=== PATIENT | male | born 1975 | race Caucasian/White ===

== ENCOUNTER 2018-09-27 13:38 | Observation (INO) | payer MEDICAID, SELFPAY ==
[2018-09-27 13:59] VITALS: BMI 23.1; BMI 23.2
[2018-09-27 14:00] VITALS: BP 127/84; PULSE 70; RESP 18; TEMP 36.6
--- NOTE | 2018-09-27 14:38 | [facility]ION ---
Addendum entered by Kayla De La Rosa 09/28/18 08:10: Patients girlfriend to pick patient up post discharge. Original Note: Patient has appointment for AOD assessment and MAMIE Estrella 10/02/2018 at [facility] in [place],
--- NOTE | 2018-09-27 14:45 | EKG12_ITS ---
Test Reason : OPIATE WITHDRAWL Blood Pressure : / mmHG Vent. Rate : 070 BPM Atrial Rate : 070 BPM P-R Int : 170 ms QRS Dur : 086 ms QT Int : 378 ms P-R-T Axes : 036 027 031 degrees QTc Int : 408 ms Normal sinus rhythm Normal ECG Confirmed by ILENE MCGEE, JAYDA ([id number]), online editor JUNIOR HUGO ([id number]) on 10/11/2018 1:48:50 PM Referred By: Estefani Capone Confirmed By:JAYDA ODOM MD
--- NOTE | 2018-09-27 14:57 | PCM.HP.STD ---
Problem List (1) Opiate withdrawal Status: Acute (2) Hepatitis C antibody test positive Status: Acute History of Present Illness Date of Admission: 09/27/18 Chief Complaint: Presented to the [facility] office requesting inpatient admission for acute opioid withdrawal. The patient is a 42 year old M with a past medical history of opiate dependence and hepatitis C who presented to the [facility] office at [facility] on 09/27/2018 requesting inpatient admission for medical stabilization for acute opiate withdrawal. His longest period of sobriety has been 3 years. Recently he had 6 months of sobriety and became ill with a viral illness and was with a friend who told him heroin may make him feel better and so he snorted heroin with the intention of only doing it once. He continued snorting heroin and approximately 2 weeks ago started intravenous use. Is been using again for approximately 1 month. He uses 1/2 g daily. He states he does not share needles. He has never been treated for hepatitis C. His symptoms include anxiety, diaphoresis, myalgias and arthralgias. He is constipated. No diarrhea and no abdominal pain or restless leg yet. Past Medical History Allergies No Known Allergies Allergy (Verified 09/27/18 14:01) Home Medications: Ambulatory Orders Medication Instructions Recorded NK 09/27/18 Surgical History: noncontributory Psychiatric History: No pertinent psych hx Lives: Alone Smoking Status: Never smoker Tobacco Use: Non-smoker Alcohol: Occasional Drugs: Heroin, Marijuana - occasionally - *Family History Maternal History Items: No pertinent history Paternal History Items: No pertinent history Review of Systems Constitutional: Denies: Chills, Fever, Weight Change Eyes: Denies: Blurred vision HEENT: Denies: Head Aches, Sinus Congestion, Sinus Drainage, Sore Throat Cardiovascular: Denies: Chest Pain, Edema, Light Headedness, Palpitations Respiratory: Denies: Cough, Shortness of breath at rest, Sputum production Gastrointestinal: Reports: Constipation. Denies: Abdominal Pain, Nausea, Vomiting Genitourinary: Denies: Dysuria Musculoskeletal: Reports: Joint Tenderness, Muscle pain. Denies: Joint Pain Skin: Denies: Jaundice, Pruritis, Rash, Wounds Neurological: Denies: Focal weakness, Numbness, Tingling, Seizures Psychiatric: Denies: Anxiety, Depression, Homicidal Ideations, Suicidal Ideations Endocrine: Denies: Hx of Thyroiditis Hematologic/ Lymphatic: Denies: Easy Bruising, Easy Bleeding, Hx of blood clot VTE Information - Inpt Only VTE Present on Admission: No VTE Mechan Device Prophylaxis: None VTE Pharm Prophylaxis ordered?: No Reason prophylaxis not ordered:: Treatment Not Indicated - risk is very low at 1 and he is ambulatory Patient Problems: Active and Suspected Problems Opiate withdrawal (Acute) Hepatitis C antibody test positive (Acute) - Physical Exam General: Alert, Oriented x3, Cooperative, No apparent distress, Well developed, Well nourished, - - looks younger than stated age HEENT: Atraumatic, PERRLA, EOMI, Normocephalic Oral: Moist Mucosa, No Gingival or Mucosal Lesions/ Ulcerations Neck: Supple, No JVD, Negative Carotid Bruits, Trachea Midline Lungs: Clear to auscultation, Normal air movement Cardiovascular: Regular rate, Regular Rhythm, Normal S1, Normal S2, No murmurs, No Ectopic Activity, No Gallop Abdomen: Bowel Sounds Present, Soft, Non Tender, Non-Distended Extremities: No clubbing, No cyanosis, No edema, Capillary Refill Less than 3 Seconds, Peripheral Pulses Normal Skin: No rashes, No breakdown Musculoskeletal: No Tenderness to Palpation of Joints or Extremities Neurological: Cranial nerves II-XII grossly intact Psych/Mental Status: Normal Affect, Appropriate Vital Signs Temp Pulse Resp BP 97.8 F 70 18 127/84 H 09/27/18 14:00 09/27/18 14:00 09/27/18 14:00 09/27/18 14:00 Weight: 180 lb 5.41 oz Body Mass Index (BMI) 23.1 Assessment/Plan All Active Problems Opiate withdrawal (Acute) Hepatitis C antibody test positive (Acute) Impressions 1. Acute opiate withdrawal 2. Opiate dependence with heroin, intravenous and snorting, 0.5 g a day 3. History of hepatitis C Initiate [facility] protocol for acute opiate withdrawal-buprenorphine taper As an outpatient he plans on doing Vivitrol Check CBC, CMP, urine drug screen, HIV and hepatitis panel Code Visit Inpatient E&M: [id number] Init Hosp L2
[2018-09-27] MEDS: Buprenorphine HCl 2 MG TAB.SUBL SL ×2 (15:17→22:55)
[2018-09-27] MEDS: Ondansetron ODT 4 MG Tablet PO (15:58)
[2018-09-27] MEDS: Dicyclomine 10 MG Capsule 20 MG PO ×2 (15:59→21:52)
[2018-09-27] MEDS: Azithromycin 250 MG Tablet 1000 MG PO (16:00)
[2018-09-27 16:11] LABS: Absolute Lymphocyte Count 1.91 X10^3/ul (0.83-4.51); Absolute Neutrophil Count 5.7 X10^3/uL (2.0-7.7); Basophil# 0.02 X10^3/uL; Basophil% 0.2 % (0-1); Eosinophil# 0.09 X10^3/uL; Hematocrit 39.4 % (40-54); Hemoglobin 13.4 g/dl (13.0-16.5); Lymphocyte # 1.91 X10^3/ul (4.0); Lymphocyte % 21.6 % (19-41); Mean Corpuscular Hgb 29.6 pg (27.0-32.0); Mean Platelet Vol. 9.6 fl (6.2-12.0); Monocyte# 1.15 X10^3/uL; Neutrophil # 5.67 X10^3/uL (2.7-7.7); Platelet Count 208 K/mm3 (150-450); RBC Distribution Width CV 12.6 % (11.6-14.6); RBC Distribution Width SD 40.4 fl (35.1-43.9); Red Blood Count 4.53 M/mm3 (4.6-6.2); White Blood Count 8.9 K/mm3 (4.4-11.0)
[2018-09-27 16:15] LABS: International Normalized Ratio 1.2; Prothrombin Time (Protime)PT. 14.9 SECONDS (11.7-14.9)
[2018-09-27 16:19] LABS: POSITIVE COUNT NO; POSITIVE DIFFERENTIAL NO; POSITIVE MORPHOLOGY NO
[2018-09-27 16:32] LABS: AST(SGOT) 23 U/L (15-37); Alanine Aminotransfer ALT/SGPT 32 U/L (16-61); Albumin, Serum 3.6 g/dL (3.2-5.0); Alkaline Phosphatase 69 U/L (45-117); Anion Gap 8 (5-15); BUN 15 mg/dL (7-18); BUN/Creat Ratio 16.2 RATIO (10-20); Calcium,Total 8.4 mg/dL (8.5-10.1); Chloride 105 mmol/L (98-107); Creatinine, Serum 0.92 mg/dL (0.70-1.30); EST Glomerular Filtration Rate 95 mL/min (>60); Est Glom Filt Rate - Afr Amer 114 mL/min (>60); Estimated Creatinine Clearance 119.79 ml/min; Globulin 3.6 g/dL (2.2-4.2); Glucose 121 mg/dL (74-106); Potassium 3.7 mmol/L (3.5-5.1); Protein, Total 7.2 g/dL (6.4-8.2); Sodium Level 137 mmol/L (136-145)
[2018-09-27 17:38] LABS: HIV - WCH Non-Reactive (Nonreactive)
[2018-09-27 18:00] VITALS: BP 120/74; PULSE 74; RESP 18; TEMP 37.2
[2018-09-27 18:09] LABS: Amphetamine Urine VISTA NEGATIVE (<1000 ng/mL); Barbiturate Urine VISTA NEGATIVE (< 200 ng/mL); Benzodiazepine Urine VISTA NEGATIVE (< 200 ng/mL); Cocaine Urine VISTA NEGATIVE (< 300 ng/mL); Ecstacy Urine VISTA NEGATIVE (< 500 ng/mL); Methadone Urine VISTA NEGATIVE (< 300 ng/mL); PCP Urine VISTA NEGATIVE (< 25 ng/mL); THC Urine VISTA POSITIVE (< 50 ng/mL); Vista UDS pH Range 5
[2018-09-27] MEDS: cloNIDine HCl 0.1 MG Tablet PO (20:24)
[2018-09-27] MEDS: Pramipexole Di-HCl 0.25 MG Tablet PO (20:24)
[2018-09-27] MEDS: Ibuprofen 600 MG Tablet PO (20:24)
[2018-09-27] MEDS: Methocarbamol 750 MG Tablet PO (20:24)
[2018-09-27 20:45] VITALS: BP 123/70; PULSE 66; RESP 16; TEMP 36.8
[2018-09-27] MEDS: traZODone 50 MG Tablet PO (21:52)
[2018-09-28 02:00] VITALS: BP 98/54; PULSE 60; RESP 16; TEMP 35.9
[2018-09-28] MEDS: Methocarbamol 750 MG Tablet PO (06:29)
[2018-09-28] MEDS: Buprenorphine HCl 2 MG TAB.SUBL SL ×3 (06:29→22:28)
[2018-09-28] MEDS: Dicyclomine 10 MG Capsule 20 MG PO (06:29)
[2018-09-28 06:36] VITALS: BP 106/56; PULSE 61; RESP 16; TEMP 35.5
--- NOTE | 2018-09-28 07:12 | PN_ITS ---
Patient Problems: Active and Suspected Problems Opiate withdrawal (Acute) Hepatitis C antibody test positive (Acute) Subjective: 42-year-old male admitted on 09/27/2018 for medical stabilization for acute opiate withdrawal. Afebrile with stable vital signs. CBC was unremarkable. BMP was remarkable for an mildly increased glucose of 121. Drug screen was positive for opiates and cannabinoids. HIV is nonreactive and hepatitis panel is pending. Doing well and has no complaints today. Objective: PHYSICAL EXAM: GENERAL: alert, oriented X 3, Cooperative, NAD ORAL: moist mucosa, no mucosal lesions NECK: No JVD, supple, trachea midline LUNGS: CTA, symmetric chest expansion HEART: RRR, Normal S1 and S2, no rub, no gallop ABDOMEN: soft, NT, ND, BS present, no guarding with palpation EXTREMITIES: no edema, no cyanosis, no calf tenderness SKIN: No rashes, no breakdown NEUROLOGIC: no focal neurologic deficits PSYCH: appropriate, normal affect, pleasant - Physical Exam Vital Signs Temp Pulse Resp BP 96 F L 61 16 106/56 L 09/28/18 06:36 09/28/18 06:36 09/28/18 06:36 09/28/18 06:36 Oxygen Delivery Method Room Air Weight: 180 lb 5.41 oz Body Mass Index (BMI) 23.1 Intake and Output for Last 24 Hours 09/26/18 09/27/18 09/28/18 23:59 23:59 23:59 Intake Total 1300 / 1300 200 / 200 Balance 1300 / 1300 200 / 200 Laboratory Tests Past 24 Hrs 09/27/18 09/27/18 09/27/18 15:52 15:52 15:52 WBC 8.9 RBC 4.53 L Hgb 13.4 Hct 39.4 L MCV 87.0 MCH 29.6 MCHC 34.0 RDW 12.6 RDW Differential 40.4 Plt Count 208 MPV 9.6 Immature Gran % (Auto) 0.200 Neut % (Auto) 64.0 Lymph % (Auto) 21.6 [place] % (Auto) 13.0 H Eos % (Auto) 1.0 Baso % (Auto) 0.2 Absolute Neuts (auto) 5.7 Absolute Lymphs (auto) 1.91 Total Counted Not Reportable PT INR Sodium Potassium Chloride Carbon Dioxide Anion Gap BUN Creatinine Estim Creat Clear Calc Est GFR (MDRD) Af Amer Est GFR (MDRD) Non-Af BUN/Creatinine Ratio Glucose Calcium Total Bilirubin AST ALT Alkaline Phosphatase Total Protein Albumin Globulin Albumin/Globulin Ratio Urine Opiates Screen Urine Methadone Screen Ur Barbiturates Screen Ur Phencyclidine Scrn Ur Amphetamines Screen U Methamphetamin-MDMA U Benzodiazepines Scrn Urine Cocaine Screen U Cannabinoids Screen Ur Drug Screen Comment Hepatitis A IgM Ab Pending Hepatitis A Ab Total Pending Hep Bs Antigen Pending Hep B Core Total Ab Pending Hep B Core IgM Ab Pending HIV 1&2 Antibody Non-Reactive 09/27/18 09/27/18 09/27/18 15:52 15:52 17:40 WBC RBC Hgb Hct MCV MCH MCHC RDW RDW Differential Plt Count MPV Immature Gran % (Auto) Neut % (Auto) Lymph % (Auto) [place] % (Auto) Eos % (Auto) Baso % (Auto) Absolute Neuts (auto) Absolute Lymphs (auto) Total Counted PT 14.9 INR 1.2 Sodium 137 Potassium 3.7 Chloride 105 Carbon Dioxide 24.0 Anion Gap 8 BUN 15 Creatinine 0.92 Estim Creat Clear Calc 119.79 Est GFR (MDRD) Af Amer 114 Est GFR (MDRD) Non-Af 95 BUN/Creatinine Ratio 16.2 Glucose 121 H Calcium 8.4 L Total Bilirubin 0.60 AST 23 ALT 32 Alkaline Phosphatase 69 Total Protein 7.2 Albumin 3.6 Globulin 3.6 Albumin/Globulin Ratio 1.0 Urine Opiates Screen POSITIVE H Urine Methadone Screen NEGATIVE Ur Barbiturates Screen NEGATIVE Ur Phencyclidine Scrn NEGATIVE Ur Amphetamines Screen NEGATIVE U Methamphetamin-MDMA NEGATIVE U Benzodiazepines Scrn NEGATIVE Urine Cocaine Screen NEGATIVE U Cannabinoids Screen POSITIVE H Ur Drug Screen Comment Hepatitis A IgM Ab Hepatitis A Ab Total Hep Bs Antigen Hep B Core Total Ab Hep B Core IgM Ab HIV 1&2 Antibody Medical Necessity - Tobacco Use Smoking Status: Never smoker Tobacco Use: Non-smoker Assessment/Plan All Active Problems Opiate withdrawal (Acute) Hepatitis C antibody test positive (Acute) Impressions 1. Acute opiate withdrawal 2. Opiate dependence with heroin, intravenous and snorting, 0.5 g a day 3. History of hepatitis C Continue buprenorphine taper He has an appointment on 10/02/[address] [facility] in [place] to start Vivitrol. Code Visit Inpatient E&M: [id number] [facility] Hosp L1
[2018-09-28 10:00] VITALS: BP 99/60; PULSE 58; RESP 16; TEMP 36.7
[2018-09-28] MEDS: Ibuprofen 600 MG Tablet PO (10:08)
[2018-09-28] MEDS: Ondansetron ODT 4 MG Tablet PO (10:09)
[2018-09-28 14:00] VITALS: BP 116/74; PULSE 60; RESP 18; TEMP 36.8
--- NOTE | 2018-09-28 15:33 | CHAPLAIN ---
introduced role of spiritual care to patient; pt says that he doesn't want to talk and 'bring up all my troubles'; left pt with offer of support if desired in future
[2018-09-28 22:25] VITALS: BP 122/75; PULSE 107; RESP 18; TEMP 36.5
[2018-09-28] MEDS: traZODone 50 MG Tablet PO (22:28)
[2018-09-29 06:44] VITALS: BP 108/65; PULSE 61; RESP 16; TEMP 36.4
[2018-09-29] MEDS: Buprenorphine HCl 2 MG TAB.SUBL SL ×2 (06:46→18:51)
[2018-09-29 07:39] LABS: HEPATITIS B SURFACE AG Negative (Negative); Hepatitis A AB, Total Negative (Negative); Hepatitis A IgM Antibody Negative (Negative); Hepatitis B Core AB IgM Negative (Negative); Hepatitis B Core Ab Total Positive (Negative); Hepatitis C Ab >11.0 s/co ratio (0.0-0.9)
[2018-09-29 10:00] VITALS: BP 117/71; PULSE 57; RESP 18; TEMP 36.9
--- NOTE | 2018-09-29 10:09 | PN_ITS ---
Patient Problems: Active and Suspected Problems Opiate withdrawal (Acute) Hepatitis C antibody test positive (Acute) Subjective: Afebrile Vital signs are stable Hepatitis panel is still pending He has no complaints and he is doing very well. Sleeping well at night. Currently with no withdrawal sx. Objective: PHYSICAL EXAM: GENERAL: alert, oriented X 3, Cooperative, NAD ORAL: moist mucosa, no mucosal lesions NECK: No JVD, supple, trachea midline LUNGS: CTA, symmetric chest expansion HEART: RRR, Normal S1 and S2, no rub, no gallop ABDOMEN: soft, NT, ND, BS present, no guarding with palpation EXTREMITIES: no edema, no cyanosis, no calf tenderness SKIN: No rashes, no breakdown NEUROLOGIC: no focal neurologic deficits PSYCH: appropriate, normal affect, pleasant - Physical Exam Vital Signs Temp Pulse Resp BP 97.5 F L 61 16 108/65 09/29/18 06:44 09/29/18 06:44 09/29/18 06:44 09/29/18 06:44 Oxygen Delivery Method Room Air Weight: 180 lb 5.41 oz Body Mass Index (BMI) 23.1 Intake and Output for Last 24 Hours 09/27/18 09/28/18 09/29/18 23:59 23:59 23:59 Intake Total 1300 / 1300 1700 / 1700 537 / 537 Balance 1300 / 1300 1700 / 1700 537 / 537 Medical Necessity - Tobacco Use Smoking Status: Never smoker Tobacco Use: Non-smoker Assessment/Plan All Active Problems Opiate withdrawal (Acute) Hepatitis C antibody test positive (Acute) Impressions 1. Acute opiate withdrawal 2. Opiate dependence with heroin, intravenous and snorting, 0.5 g a day 3. History of hepatitis C Continue buprenorphine taper He has an appointment on 10/02/2018 at [facility] in [place] to start Vivitrol. Await the results of the hepatitis panel.....hopefully it will be back prior to DC but, if it is not I will call him with the results when they are available.
[2018-09-29] MEDS: Dicyclomine 10 MG Capsule 20 MG PO (10:32)
[2018-09-29 11:26] LABS: Hep B Surface Antibodies Non Reactive (.)
[2018-09-29 16:00] VITALS: PULSE 51
[2018-09-29 16:26] VITALS: BP 112/75; PULSE 51; RESP 18; TEMP 36.9; O2SAT 100
[2018-09-29 16:55] VITALS: BP 112/75; PULSE 51; RESP 18; TEMP 36.9
[2018-09-29] MEDS: traZODone 50 MG Tablet PO (22:33)
[2018-09-29 22:34] VITALS: BP 117/68; PULSE 54; RESP 16; TEMP 36.6
--- NOTE | 2018-09-30 06:49 | DCINST_ITS ---
- Discharge Diagnoses Current Active Problems: Current Active and Chronic Problems Opiate withdrawal (Acute) Hepatitis C antibody test positive (Acute) You will use the following diet at home:: No restrictions Your food should be the consistency of: Regular Your liquids should be the consistency of: Regular/Thin Discharge Activity: Return to Normal Activity Call your doctor if you observe: - - Increased fatigue, yellow skin or yellow eyes, dark urine, increasing abdominal girth, swelling in your legs. Instructions: Treating Hepatitis C (HCV), Understanding Hepatitis C (HCV), Understanding Hepatitis B (HBV), Treating Hepatitis C: Medications, What to Know About Hepatitis C Treatment, Hepatitis C: Preventing the Spread, Hepatitis C: Know the Facts Additional Instructions: 1. You have both Hepatitis B and Hepatitis C. The Hepatitis B is not active but, you do have the antibody so you have been exposed in the past. Hep C and B are transmitted in blood products and during sex. Do NOT share needles and always wear a condom to prevent exposing your partner. When you have been clean for 6 months follow up with an infectious disease doctor to be treated for hep C. Untreated Hepatitis C can nelson to cirrhosis and even cancer of the liver. Allergies/Adverse Reactions: Allergies No Known Allergies Allergy (Verified 09/27/18 14:01) Medications to take at Discharge NK 09/27/18 Primary Care Physician: Care Physician,No Primary [Primary Care Provider] - Test Results: Test results from this visit will be discussed in further detail at your follow- up appointment, if applicable. Please Follow Up With: Lencho Aguayo MD When: after you have been clean for 6 months Proposed Discharge Date: 09/30/18
--- NOTE | 2018-09-30 06:52 | PCM.DC.SUM ---
Discharge Date and Diagnosis - Problem List Patient Problems: Active and Suspected Problems Opiate withdrawal (Acute) Hepatitis C antibody test positive (Acute) Date of Admission: 09/27/18 Date of Discharge: 09/30/18 - Primary Discharge Diagnosis Active and Suspected Problems Opiate withdrawal (Acute) Hepatitis C antibody test positive (Acute) Hepatitis B Core Antibody + - new diagnosis - Secondary Discharge Diagnosis opiate dependence Hospital Course and Treatment Imaging Results: Laboratory Tests 09/27/18 09/27/18 09/27/18 Range/Units 17:40 15:52 15:52 WBC (4.4-11.0) K/mm3 RBC (4.6-6.2) M/mm3 Hgb (13.0-16.5) g/dl Hct (40-54) % MCV (80-94) fL MCH (27.0-32.0) pg MCHC (32-36) g/gl RDW (11.6-14.6) % RDW Differential (35.1-43.9) fl Plt Count (150-450) K/mm3 MPV (6.2-12.0) fl Immature Gran % (Auto) (0.0-0.9) % Neut % (Auto) (47-70) % Lymph % (Auto) (19-41) % [place] % (Auto) (0-10) % Eos % (Auto) (0-5) % Baso % (Auto) (0-1) % Absolute Neuts (auto) (2.0-7.7) X10^3/uL Absolute Lymphs (auto) (0.83-4.51) X10^3/ul Total Counted PT 14.9 (11.7-14.9) SECONDS INR 1.2 Sodium 137 (136-145) mmol/L Potassium 3.7 (3.5-5.1) mmol/L Chloride 105 (98-107) mmol/L Carbon Dioxide 24.0 (21.0-32.0) mmol/L Anion Gap 8 (5-15) BUN 15 (7-18) mg/dL Creatinine 0.92 (0.70-1.30) mg/dL Estim Creat Clear Calc 119.79 ml/min Est GFR (MDRD) Af Amer 114 (>60) mL/min Est GFR (MDRD) Non-Af 95 (>60) mL/min BUN/Creatinine Ratio 16.2 (10-20) RATIO Glucose 121 H (74-106) mg/dL Calcium 8.4 L (8.5-10.1) mg/dL Total Bilirubin 0.60 (0.20-1.00) mg/dL AST 23 (15-37) U/L ALT 32 (16-61) U/L Alkaline Phosphatase 69 (45-117) U/L Total Protein 7.2 (6.4-8.2) g/dL Albumin 3.6 (3.2-5.0) g/dL Globulin 3.6 (2.2-4.2) g/dL Albumin/Globulin Ratio 1.0 (0.9-2.4) RATIO Urine Opiates Screen POSITIVE H (< 300 ng/mL) Urine Methadone Screen NEGATIVE (< 300 ng/mL) Ur Barbiturates Screen NEGATIVE (< 200 ng/mL) Ur Phencyclidine Scrn NEGATIVE (< 25 ng/mL) Ur Amphetamines Screen NEGATIVE (<1000 ng/mL) U Methamphetamin-MDMA NEGATIVE (< 500 ng/mL) U Benzodiazepines Scrn NEGATIVE (< 200 ng/mL) Urine Cocaine Screen NEGATIVE (< 300 ng/mL) U Cannabinoids Screen POSITIVE H (< 50 ng/mL) Ur Drug Screen Comment Hepatitis A IgM Ab (Negative) Hepatitis A Ab Total (Negative) Hep Bs Antigen (Negative) Hep B Core Total Ab (Negative) Hep B Core IgM Ab (Negative) Hepatitis C Ab Confirm (0.0-0.9) s/co ratio HIV 1&2 Antibody (Nonreactive) 09/27/18 09/27/18 09/27/18 Range/Units 15:52 15:52 15:52 WBC 8.9 (4.4-11.0) K/mm3 RBC 4.53 L (4.6-6.2) M/mm3 Hgb 13.4 (13.0-16.5) g/dl Hct 39.4 L (40-54) % MCV 87.0 (80-94) fL MCH 29.6 (27.0-32.0) pg MCHC 34.0 (32-36) g/gl RDW 12.6 (11.6-14.6) % RDW Differential 40.4 (35.1-43.9) fl Plt Count 208 (150-450) K/mm3 MPV 9.6 (6.2-12.0) fl Immature Gran % (Auto) 0.200 (0.0-0.9) % Neut % (Auto) 64.0 (47-70) % Lymph % (Auto) 21.6 (19-41) % [place] % (Auto) 13.0 H (0-10) % Eos % (Auto) 1.0 (0-5) % Baso % (Auto) 0.2 (0-1) % Absolute Neuts (auto) 5.7 (2.0-7.7) X10^3/uL Absolute Lymphs (auto) 1.91 (0.83-4.51) X10^3/ul Total Counted Not Reportable PT (11.7-14.9) SECONDS INR Sodium (136-145) mmol/L Potassium (3.5-5.1) mmol/L Chloride (98-107) mmol/L Carbon Dioxide (21.0-32.0) mmol/L Anion Gap (5-15) BUN (7-18) mg/dL Creatinine (0.70-1.30) mg/dL Estim Creat Clear Calc ml/min Est GFR (MDRD) Af Amer (>60) mL/min Est GFR (MDRD) Non-Af (>60) mL/min BUN/Creatinine Ratio (10-20) RATIO Glucose (74-106) mg/dL Calcium (8.5-10.1) mg/dL Total Bilirubin (0.20-1.00) mg/dL AST (15-37) U/L ALT (16-61) U/L Alkaline Phosphatase (45-117) U/L Total Protein (6.4-8.2) g/dL Albumin (3.2-5.0) g/dL Globulin (2.2-4.2) g/dL Albumin/Globulin Ratio (0.9-2.4) RATIO Urine Opiates Screen (< 300 ng/mL) Urine Methadone Screen (< 300 ng/mL) Ur Barbiturates Screen (< 200 ng/mL) Ur Phencyclidine Scrn (< 25 ng/mL) Ur Amphetamines Screen (<1000 ng/mL) U Methamphetamin-MDMA (< 500 ng/mL) U Benzodiazepines Scrn (< 200 ng/mL) Urine Cocaine Screen (< 300 ng/mL) U Cannabinoids Screen (< 50 ng/mL) Ur Drug Screen Comment Hepatitis A IgM Ab Negative (Negative) Hepatitis A Ab Total Negative (Negative) Hep Bs Antigen Negative (Negative) Hep B Core Total Ab Positive H (Negative) Hep B Core IgM Ab Negative (Negative) Hepatitis C Ab Confirm >11.0 H (0.0-0.9) s/co ratio HIV 1&2 Antibody Non-Reactive (Nonreactive) none Operations: None Procedures: None Summary of Care Provided: The patient is a 42 year old M with a past medical history of opiate dependence and hepatitis C who presented to the [facility] office at [facility] on 09/27/2018 requesting inpatient admission for medical stabilization for acute opiate withdrawal. Recently he has had 6 months of sobriety and approximately 1 month ago started using heroin again. Initially he started with snorting and for the past 2 weeks has been injecting approximately 1/2 g daily. His longest period of sobriety has been 3 years. He denied sharing needles. He has never been treated for hepatitis C. Withdrawal symptoms at admission included anxiety, diaphoresis, myalgias/arthralgias and constipation. He was admitted to the hospital and the [facility] protocol for acute opiate withdrawal was initiated. Lab was remarkable for a mildly increased glucose at 121 and a mildly decreased calcium at 8.4. LFT's were normal. Urine drug screen was positive for cannabinoids and opiates. HIV was negative. Hepatitis panel was positive for hepatitis C antibody and hepatitis B core antibody with a negative hepatitis B surface antigen. His 72 hours of detox was uneventful. He was provided with printed educational material about how to prevent transmission of hepatitis and treating Hepatitis C. He was encouraged to follow up with an infectious disease doctor to be treated for hepatitis C. He knows that he will need 6 months of documented sobriety prior to being treated for Hep C. He also is aware that Hep C can lead to cirrhosis and Hepatoma. He was advised never to share needles if he relapses and to use condoms to protect himself and his partners. He was discharged home on 09/30/18. He has an appt to start Vivitrol. PHYSICAL EXAM: GENERAL: alert, oriented X 3, Cooperative, NAD ORAL: moist mucosa, no mucosal lesions NECK: No JVD, supple, trachea midline LUNGS: CTA, symmetric chest expansion HEART: RRR, Normal S1 and S2, no rub, no gallop ABDOMEN: soft, NT, ND, BS present, no guarding with palpation EXTREMITIES: no edema, no cyanosis, no calf tenderness SKIN: No rashes, no breakdown NEUROLOGIC: no focal neurologic deficits PSYCH: appropriate, normal affect, pleasant This note was generated with [email or web address] dictation software. It may contain incorrect words, spelling, and punctuation that were not noted in checking the note before signing. Patient Problems: Active and Suspected Problems Opiate withdrawal (Acute) Hepatitis C antibody test positive (Acute) - Physical Exam Vital Signs Temp Pulse Resp BP Pulse Ox 98 F 54 L 16 117/68 100 09/29/18 22:34 09/29/18 22:34 09/29/18 22:34 09/29/18 22:34 09/29/18 16:26 Oxygen Delivery Method Room Air Weight: 180 lb 5.41 oz Body Mass Index (BMI) 23.1 Intake and Output for Last 24 Hours 09/28/18 09/29/18 09/30/18 23:59 23:59 23:59 Intake Total 1700 / 1700 962 / 962 400 / 400 Balance 1700 / 1700 962 / 962 400 / 400 Laboratory Tests Past 24 Hrs 09/27/18 15:52 Hepatitis A IgM Ab Negative Hepatitis A Ab Total Negative Hep Bs Antigen Negative Hep B Core Total Ab Positive H Hep B Core IgM Ab Negative Hepatitis C Ab Confirm >11.0 H Discharge Activity: Return to Normal Activity Call your doctor if you observe: - - Increased fatigue, yellow skin or yellow eyes, dark urine, increasing abdominal girth, swelling in your legs. Home Medications: Medications to take at Discharge NK 09/27/18 Primary Care Physician: Care Physician,No Primary [Primary Care Provider] - Please Follow Up With: Lencho Aguayo MD When: after you have been clean for 6 months Patient Instructions: Understanding Hepatitis C (HCV), Treating Hepatitis C (HCV), Understanding Hepatitis B (HBV), Treating Hepatitis C: Medications, What to Know About Hepatitis C Treatment, Hepatitis C: Preventing the Spread, Hepatitis C: Know the Facts Disposition: Home Minutes spent on discharge:: 30 Patient Condition:: Good Medical Necessity - Tobacco Use Smoking Status: Never smoker Tobacco Use: Non-smoker Meaningful Use Info Meaningful Use Diagnoses (Choose all that apply): None applicable Code Visit Inpatient E&M: [id number] Disch Hosp
[2018-09-30 06:56] VITALS: BP 132/81; PULSE 67; RESP 18; TEMP 36.6; O2SAT 99
[2018-09-30 06:57] VITALS: BP 132/81; PULSE 67; RESP 18; TEMP 36.6
[2018-09-30] MEDS: Buprenorphine HCl 2 MG TAB.SUBL SL (06:58)
[2018-09-30] MEDS: Ondansetron ODT 4 MG Tablet PO (07:00)
[2018-09-30 07:58] VITALS: BP 132/81; PULSE 67; RESP 18; TEMP 36.6; O2SAT 98
== END 2018-09-30 08:00 | disposition home or self-care (01) | DRG 773 ==
PROVIDERS: Admitting Provider Internal Medicine; Referring Provider Internal Medicine; Visit Provider Internal Medicine
DX: F11.23 Opioid dependence with withdrawal (principal); B19.20 Unspecified viral hepatitis C without hepatic coma; B19.10 Unspecified viral hepatitis B without hepatic coma; K59.00 Constipation, unspecified
CPT/HCPCS: 36415; 80053; 80307; 85025; 85610; 86703; 86704; 86705; 86706; 86708; 86709; 86803; 87340; 93005; 99218; G0378; G0379

== ENCOUNTER 2018-11-08 16:43 | Observation (INO) | payer MEDICAID, SELFPAY ==
[2018-09-27 13:59] VITALS: BMI 23.1
--- NOTE | 2018-11-08 16:53 | PCM.HP.STD ---
Problem List (1) Acute opioid withdrawal Status: Acute (2) Chronic hepatitis C Status: Chronic Qualifiers: Hepatic coma status: without hepatic coma Qualified Code(s): B18.2 - Chronic viral hepatitis C History of Present Illness Date of Admission: 11/08/18 Chief Complaint: Acute opiate withdrawal The patient is a 43 year old M with past medical history of chronic hepatitis C, heroin use disorder who was recently discharged 5 weeks ago on a [facility] who comes in with complaints of nausea, vomiting, diarrhea, abdominal cramps consistent with acute opiate withdrawal. He admits to having bad judgment and going back to snort heroin this time. He had admitted to use of IV heroin in the last time. Last used heroin 2 PM a day before admission. He complains of abdominal cramps, feeling hot and cold, having nausea and vomiting with muscle cramps. His Cina score on admission was 19. Past Medical History Past Medical History (Chronic Problems): Chronic Problems Chronic hepatitis C (Chronic) Allergies No Known Allergies Allergy (Verified 09/27/18 14:01) Home Medications: Ambulatory Orders Medication Instructions Recorded NK 09/27/18 Surgical History: noncontributory Psychiatric History: No pertinent psych hx Lives: Spouse/ Significant Other - girlfriend Smoking Status: Never smoker Tobacco Use: Non-smoker Alcohol: None Drugs: Heroin, Marijuana - *Family History Maternal History Items: No pertinent history Paternal History Items: No pertinent history Review of Systems Constitutional: Reports: Anorexia, Weakness. Denies: Chills, Fever, Weight Change Eyes: Denies: Blurred vision, Cataracts, Conjunctivae Inflammation, Double vision, Eyelid Inflammation, Pain, Redness, Vision Change HEENT: Denies: Difficulty Hearing, Difficulty Swallowing, Head Aches, Hearing Changes, Sinus Congestion, Sinus Drainage, Sore Throat Cardiovascular: Denies: Chest Pain, Claudication, Orthopnea, Palpitations Respiratory: Denies: Cough, Hemoptysis, Shortness of breath at rest, Shortness of breath upon exertion, Sputum production Gastrointestinal: Reports: Nausea, Vomiting. Denies: Abdominal Pain, Constipation, Hematemesis, Hematochezia Genitourinary: Denies: Dysuria, Frequency, Incontinence Musculoskeletal: Denies: Joint Pain, Joint stiffness, Joint swelling, Joint Tenderness Skin: Denies: Pruritis, Rash, Wounds Neurological: Denies: Difficulty swallowing, Focal weakness, Numbness, Tingling Psychiatric: Denies: Anxiety, Depression, Homicidal Ideations, Suicidal Ideations Hematologic/ Lymphatic: Denies: Easy Bruising, Easy Bleeding VTE Information - Inpt Only VTE Present on Admission: No VTE Pharm Prophylaxis ordered?: Yes Patient Problems: Active and Suspected Problems Acute opioid withdrawal (Acute) - Physical Exam General: Alert, Oriented x3, Cooperative, No apparent distress HEENT: Atraumatic, PERRLA, EOMI, Normocephalic Oral: Moist Mucosa Neck: Supple, No JVD, Negative Carotid Bruits Lungs: Clear to auscultation, Normal air movement Cardiovascular: Regular rate, Regular Rhythm, Normal S1, Normal S2, No murmurs Abdomen: Bowel Sounds Present, Soft, Non Tender, Non-Distended, No Hepato-splenomegaly Extremities: No edema Skin: - - Tattoos on the upper extremities Musculoskeletal: No Tenderness to Palpation of Joints or Extremities Lymphatic: No Cervical, Supraclavicular, or Inguinal Adenopathy Neurological: Cranial nerves II-XII grossly intact, Neuro grossly intact Psych/Mental Status: Normal Affect, Appropriate Body Mass Index (BMI) 23.1 Assessment/Plan All Active Problems Opiate withdrawal (Acute) Hepatitis C antibody test positive (Acute) Acute opioid withdrawal (Acute) 43 year old M with past medical history of chronic hepatitis C, heroin use disorder who was recently discharged 5 weeks ago on a [facility] who comes in with complaints of nausea, vomiting, diarrhea, abdominal cramps consistent with acute opiate withdrawal. 1. Acute opiate withdrawal, in a known heroin abuse. Patient admits to snorting heroin this time. Admitting Cina score is 19 Plan: Admit to [facility], continue to monitor per [facility] protocol. 2. Polysubstance use disorder, advised to quit. 3. Chronic Hep C, needs to be followed up in the outpatient with his primary care doctor. 4. DVT PPx- early ambulation. Code Visit Inpatient E&M: 13493 Init Hosp L2
[2018-11-08 17:13] VITALS: BMI 21.8
[2018-11-08 17:32] VITALS: BP 105/66; PULSE 89; RESP 16; TEMP 37.2
[2018-11-08] MEDS: cloNIDine HCl 0.1 MG Tablet PO (17:42)
[2018-11-08] MEDS: hydrOXYzine PAM 25 MG Capsule 50 MG PO (17:42)
[2018-11-08] MEDS: Pramipexole Di-HCl 0.25 MG Tablet PO (17:42)
[2018-11-08] MEDS: Methocarbamol 750 MG Tablet PO (17:42)
[2018-11-08] MEDS: Buprenorphine HCl 2 MG TAB.SUBL SL (17:42)
[2018-11-08] MEDS: Dicyclomine 10 MG Capsule 20 MG PO (17:42)
[2018-11-08] MEDS: Ondansetron ODT 4 MG Tablet PO (17:47)
[2018-11-08 18:30] LABS: Amphetamine Urine VISTA NEGATIVE (<1000 ng/mL); Barbiturate Urine VISTA NEGATIVE (< 200 ng/mL); Benzodiazepine Urine VISTA NEGATIVE (< 200 ng/mL); Cocaine Urine VISTA NEGATIVE (< 300 ng/mL); Ecstacy Urine VISTA NEGATIVE (< 500 ng/mL); Methadone Urine VISTA NEGATIVE (< 300 ng/mL); PCP Urine VISTA NEGATIVE (< 25 ng/mL); THC Urine VISTA POSITIVE (< 50 ng/mL); Vista UDS pH Range 5
[2018-11-08 21:47] VITALS: BP 103/65; PULSE 67; RESP 16; TEMP 36.6
[2018-11-09 01:30] VITALS: BP 100/60; PULSE 90; RESP 16; TEMP 36.6
[2018-11-09] MEDS: Buprenorphine HCl 2 MG TAB.SUBL SL ×3 (01:36→17:22)
[2018-11-09 06:00] VITALS: BP 111/71; PULSE 71; RESP 16; TEMP 36.4
--- NOTE | 2018-11-09 06:12 | NURSING ---
Pt. expressed frustration about being woken up every 4 hours to have vital signs taking. This nurse explained that vitals signs are taken Q4hrs for the first 24 hours. Pt.'s response They said that they wouldn't do that this time. This nurse said that it is per protocol. Pt. Reluctantly allowed nurse to take vital signs.
--- NOTE | 2018-11-09 08:10 | PCM.PN.HOSP ---
Patient Problems: Active and Suspected Problems Acute opioid withdrawal (Acute) Subjective: Patient extremely irritable, noting that he has been woken up 3 times in the last hour. Per discussion with nursing staff similar complaints through the evening and primary complaint is having to be woken up for scoring. Patient notes his symptoms have been worse since initial presentation and states that he still has nausea and abdominal cramps but no witnessed vomiting or diarrhea per staff. Patient denies fevers, chills, chest pain or dyspnea. Objective: Physical Examination: General: awake, alert, oriented x 3 and cooperative, seated upright in bed in no apparent distress but extremely irritable. Skin: normal color, turgor, no icterus, cyanosis, recent injection regions noninfected appearing. HEENT: AT/NC, EOMI, PERRLA, mildly dry MM. Lungs: CTA bilaterally, moderate effort, moderate decrease BL bases, no rales, ronchi or wheezing. Heart: Regular rate and rhythm; no gallop, rub audible. Abdomen: soft, NTTP, ND, normal BS. Extremities: no cyanosis, clubbing, or edema. Neurological: patient awake, alert, oriented x 3; cognitive function intact; pupils equally reactive to light and accomodation; cranial nerves II-XII grossly normal, moving all 4 extremities, no focal deficits, strength mildly moderately global decrease secondary to acute presentation. Psychiatric: affect appears irritable, no acute evidence of depressive or anxiety feelings. Vitals/I&O's: Vital Signs Temp Pulse Resp BP 97.6 F L 71 16 111/71 11/09/18 06:00 11/09/18 06:00 11/09/18 06:00 11/09/18 06:00 Weight: 170 lb Body Mass Index (BMI) 21.8 Intake and Output for Last 24 Hours 11/07/18 11/08/18 11/09/18 23:59 23:59 23:59 Intake Total 400 / 400 Balance 400 / 400 Laboratory Results 11/08/18 17:20: Urine Opiates Screen POSITIVE H, Urine Methadone Screen NEGATIVE, Ur Barbiturates Screen NEGATIVE, Ur Phencyclidine Scrn NEGATIVE, Ur Amphetamines Screen NEGATIVE, U Methamphetamin-MDMA NEGATIVE, U Benzodiazepines Scrn NEGATIVE, Urine Cocaine Screen NEGATIVE, U Cannabinoids Screen POSITIVE H, Ur Drug Screen Comment Current Medications Acetaminophen (Tylenol) 500 mg PO Q4H PRN PRN PRN Reason: Temp > 100.4 F Al Hydroxide/Mg Hydroxide (Mylanta Ii) 30 ml PO Q6H PRN PRN PRN Reason: dyspesia Bisacodyl (Dulcolax) 10 mg RECTAL DAILY PRN PRN Reason: Constipation Buprenorphine HCl (Buprenorphine Hcl) 4 mg SL Q8H LIZET; Taper Stop: 11/11/18 20:59 Last Admin: 11/09/18 01:36 Dose: 4 mg Chlordiazepoxide (Librium) 25 mg PO Q6H PRN PRN PRN Reason: Moderate-Severe Anxiety Clonidine (Catapres) 0.1 mg PO Q2H PRN PRN PRN Reason: Hot/Cold Sweats or Anxiety Last Admin: 11/08/18 17:42 Dose: 0.1 mg Dicyclomine HCl (Bentyl) 20 mg PO Q6H PRN PRN PRN Reason: Abdomnial Discomfort Last Admin: 11/08/18 17:42 Dose: 20 mg Hydroxyzine Pamoate (Vistaril Pamoate Capsule) 50 mg PO Q6H PRN PRN PRN Reason: Mild Anxiety Last Admin: 11/08/18 17:42 Dose: 50 mg Ibuprofen (Motrin) 600 mg PO Q8H PRN PRN PRN Reason: Mild-Moderate Pain (1-5/10) Loperamide HCl (Imodium) 2 - 4 mg PO UD PRN PRN Reason: LOOSE STOOLS Methocarbamol (Methocarbamol) 750 mg PO Q6H PRN PRN PRN Reason: Muscle Aches Last Admin: 11/08/18 17:42 Dose: 750 mg Ondansetron HCl (Zofran Odt) 4 mg PO Q6H PRN PRN PRN Reason: NAUSEA Last Admin: 11/08/18 17:47 Dose: 4 mg Pramipexole Dihydrochloride (Mirapex) 0.25 mg PO Q12H PRN PRN PRN Reason: Restless Legs Last Admin: 11/08/18 17:42 Dose: 0.25 mg Quetiapine Fumarate (Seroquel) 25 mg PO Q6H PRN PRN PRN Reason: anxiety, agitation Senna (Senokot) 1 tablet PO QHS PRN PRN Reason: Constipation Trazodone HCl (Desyrel) 50 mg PO QHS [facility] Last Admin: 11/08/18 21:38 Dose: Not Given Medical Necessity - Tobacco Use Smoking Status: Never smoker Tobacco Use: Non-smoker Assessment/Plan All Active Problems Opiate withdrawal (Acute) Hepatitis C antibody test positive (Acute) Acute opioid withdrawal (Acute) The patient is a 43 y/o M w/ PMHx: Chronic Hepatitis C, IV Heroine usage with history of being recently discharged from [facility] ~5 weeks prior who now re-presents to the [facility] on 11/08/18 with recent IV heroine usage, last usage 2 pm on day prior to admission. (1) Acute Opiate Withdrawal: Admitted to CT, initiated and continued on [facility] service protocol with tapering course of Subutex, as needed Seroquel, Librium, Sinemet, Catapres, Bentyl, Vistaril, IV fluids, IV antiemetics, Tylenol as needed for pain. Once patient clinically improved and completion of taper nearing will plan [facility] assistance for transition to next level of rehabilitation care. High risk for relapse suspected. (2) Polysubstance Abuse, IVDA Hx, History of Hepatitis C, Chronic: Patient currently not candidate for hep C treatment currently as needs to be clean, sober x 6 months, documented attendance NA or AA meetings, counseling and ongoing negative drug screens. Encouraged PCP establishment and follow-up. (3) DVT prophylaxis: Low risk, ambulation. Code Visit Inpatient E&M: 05353 Subs Hosp L2
--- NOTE | 2018-11-09 08:14 | PN_ITS ---
Patient Problems: Active and Suspected Problems Acute opioid withdrawal (Acute) Subjective: Patient extremely irritable, noting that he has been woken up 3 times in the last hour. Per discussion with nursing staff similar complaints through the evening and primary complaint is having to be woken up for scoring. Patient notes his symptoms have been worse since initial presentation and states that he still has nausea and abdominal cramps but no witnessed vomiting or diarrhea per staff. Patient denies fevers, chills, chest pain or dyspnea. Objective: Physical Examination: General: awake, alert, oriented x 3 and cooperative, seated upright in bed in no apparent distress but extremely irritable. Skin: normal color, turgor, no icterus, cyanosis, recent injection regions noninfected appearing. HEENT: AT/NC, EOMI, PERRLA, mildly dry MM. Lungs: CTA bilaterally, moderate effort, moderate decrease BL bases, no rales, ronchi or wheezing. Heart: Regular rate and rhythm; no gallop, rub audible. Abdomen: soft, NTTP, ND, normal BS. Extremities: no cyanosis, clubbing, or edema. Neurological: patient awake, alert, oriented x 3; cognitive function intact; pupils equally reactive to light and accomodation; cranial nerves II-XII grossly normal, moving all 4 extremities, no focal deficits, strength mildly moderately global decrease secondary to acute presentation. Psychiatric: affect appears irritable, no acute evidence of depressive or anxiety feelings. Vitals/I&O's: Vital Signs Temp Pulse Resp BP 97.6 F L 71 16 111/71 11/09/18 06:00 11/09/18 06:00 11/09/18 06:00 11/09/18 06:00 Weight: 170 lb Body Mass Index (BMI) 21.8 Intake and Output for Last 24 Hours 11/07/18 11/08/18 11/09/18 23:59 23:59 23:59 Intake Total 400 / 400 Balance 400 / 400 Laboratory Results 11/08/18 17:20: Urine Opiates Screen POSITIVE H, Urine Methadone Screen NEGATIVE, Ur Barbiturates Screen NEGATIVE, Ur Phencyclidine Scrn NEGATIVE, Ur Amphetamines Screen NEGATIVE, U Methamphetamin-MDMA NEGATIVE, U Benzodiazepines Scrn NEGATIVE, Urine Cocaine Screen NEGATIVE, U Cannabinoids Screen POSITIVE H, Ur Drug Screen Comment Current Medications Acetaminophen (Tylenol) 500 mg PO Q4H PRN PRN PRN Reason: Temp > 100.4 F Al Hydroxide/Mg Hydroxide (Mylanta Ii) 30 ml PO Q6H PRN PRN PRN Reason: dyspesia Bisacodyl (Dulcolax) 10 mg RECTAL DAILY PRN PRN Reason: Constipation Buprenorphine HCl (Buprenorphine Hcl) 4 mg SL Q8H LIZET; Taper Stop: 11/11/18 20:59 Last Admin: 11/09/18 01:36 Dose: 4 mg Chlordiazepoxide (Librium) 25 mg PO Q6H PRN PRN PRN Reason: Moderate-Severe Anxiety Clonidine (Catapres) 0.1 mg PO Q2H PRN PRN PRN Reason: Hot/Cold Sweats or Anxiety Last Admin: 11/08/18 17:42 Dose: 0.1 mg Dicyclomine HCl (Bentyl) 20 mg PO Q6H PRN PRN PRN Reason: Abdomnial Discomfort Last Admin: 11/08/18 17:42 Dose: 20 mg Hydroxyzine Pamoate (Vistaril Pamoate Capsule) 50 mg PO Q6H PRN PRN PRN Reason: Mild Anxiety Last Admin: 11/08/18 17:42 Dose: 50 mg Ibuprofen (Motrin) 600 mg PO Q8H PRN PRN PRN Reason: Mild-Moderate Pain (1-5/10) Loperamide HCl (Imodium) 2 - 4 mg PO UD PRN PRN Reason: LOOSE STOOLS Methocarbamol (Methocarbamol) 750 mg PO Q6H PRN PRN PRN Reason: Muscle Aches Last Admin: 11/08/18 17:42 Dose: 750 mg Ondansetron HCl (Zofran Odt) 4 mg PO Q6H PRN PRN PRN Reason: NAUSEA Last Admin: 11/08/18 17:47 Dose: 4 mg Pramipexole Dihydrochloride (Mirapex) 0.25 mg PO Q12H PRN PRN PRN Reason: Restless Legs Last Admin: 11/08/18 17:42 Dose: 0.25 mg Quetiapine Fumarate (Seroquel) 25 mg PO Q6H PRN PRN PRN Reason: anxiety, agitation Senna (Senokot) 1 tablet PO QHS PRN PRN Reason: Constipation Trazodone HCl (Desyrel) 50 mg PO QHS [facility] Last Admin: 11/08/18 21:38 Dose: Not Given Medical Necessity - Tobacco Use Smoking Status: Never smoker Tobacco Use: Non-smoker Assessment/Plan All Active Problems Opiate withdrawal (Acute) Hepatitis C antibody test positive (Acute) Acute opioid withdrawal (Acute) The patient is a 43 y/o M w/ PMHx: Chronic Hepatitis C, IV Heroine usage with history of being recently discharged from [facility] ~5 weeks prior who now re-presents to the [facility] on 11/08/18 with recent IV heroine usage, last usage 2 pm on day prior to admission. (1) Acute Opiate Withdrawal: Admitted to [place], initiated and continued on [facility] service protocol with tapering course of Subutex, as needed Seroquel, Librium, Sinemet, Catapres, Bentyl, Vistaril, IV fluids, IV antiemetics, Tylenol as needed for pain. Once patient clinically improved and completion of taper nearing will plan [facility] assistance for transition to next level of rehabilitation care. High risk for relapse suspected. (2) Polysubstance Abuse, IVDA Hx, History of Hepatitis C, Chronic: Patient currently not candidate for hep C treatment currently as needs to be clean, sober x 6 months, documented attendance NA or AA meetings, counseling and ongoing negative drug screens. Encouraged PCP establishment and follow-up. (3) DVT prophylaxis: Low risk, ambulation. Code Visit Inpatient E&M: 12009 Subs Hosp L2
[2018-11-09 08:36] VITALS: BP 95/67; PULSE 68; RESP 16; TEMP 36.4
[2018-11-09] MEDS: Methocarbamol 750 MG Tablet PO (08:41)
[2018-11-09] MEDS: Dicyclomine 10 MG Capsule 20 MG PO (08:41)
[2018-11-09] MEDS: Pramipexole Di-HCl 0.25 MG Tablet PO (08:41)
--- NOTE | 2018-11-09 10:38 | NURSING ---
While this RN was down the hallway I noted patient to be out of room with a raised voice engaged in conversation with housekeeping. The patient then went in the door and shut it behind him. The tipple repairer stated he was upset that people kept coming in his room and he refused the room to be cleaned. At this time, I did not disturb the patient and left him in the room.
--- NOTE | 2018-11-09 12:09 | [facility] ---
Patient has three appointments post discharge: [facility] for assessment for [facility] / [facility] program 11/14/2018 11am, [facility] health evaluation 11/14/2018 at 3;30pm, and again on 11/23/2018 for medication(s). Patient's girlfriend to sweet pickle maker patient upon d/c.
[2018-11-09 13:30] VITALS: BP 98/64; PULSE 89; RESP 14; TEMP 36.6
--- NOTE | 2018-11-09 13:33 | NURSING ---
Addendum entered by Estrella Queen 11/09/18 13:37: Please note that the w/d assessment had required cox that had to be filled out in order to save. Only partial cox were completed. This RN did NOT complete pupil assessment, coordination/gait assessment, hallucinations, hand grasps, tremors. The patient stated he was not sweaty but this nurse did not observe skin. Original Note: Patient did not allow the RN to complete w/d assessment. I spoke to the patient regarding how we perform a w/d assessment every 4 hours for the first 24 hours and the patient became upset flipped over on his side to face away from the RN. He then refused to talk. Unable to provide any education @ this point.
[2018-11-09 16:16] VITALS: BP 138/103; PULSE 89; RESP 18; TEMP 36.6; O2SAT 99
[2018-11-09] MEDS: chlordiazePOXIDE 25 MG Capsule PO (16:20)
--- NOTE | 2018-11-09 17:11 | CHAPLAIN ---
Type of Pastoral Visit _x__ Initial Visit ___ Follow-up Visit ___ On-call Visit ___ General Patient Visit ___ Spiritual Assessment ___ Family Conference ___ Bereavement ___ Rapid Response ___ Code Blue ___ Other (describe below) Pastoral Care Referral From ___ Patient ___ Family _x__ Nurse ___ Physician ___ Steward/Stewardess Wine ___ Oracle Consultant ___ Other (describe below) Sacrament/Intervention ___ Active listening ___ Anointing ___ Druze ___ Bereavement ___ Communion ___ Delma exploration ___ ___ Life review ___ Prayer ___ Reconciliation ___ Sacrament of Sick ___ Supportive presence ___ Wedding ___ Other (describe below) Pastoral Comments offer of support given to patient; pt declines
--- NOTE | 2018-11-09 17:15 | NURSING ---
While performing 1800 w/d assessment the patient began expressing his frustrations with this stay. He began yelling and using profanity. With deescalation techniques he returned to a normal volume. The patient then allowed this nurse to continue his w/d assessment. While doing hand grasps the patient grasped this RN's hand with a great force and gruffly. Following the assessment he expressed that he would like a medication for muscles aches. I expressed that I would go to get the methocarbamol and the patient asked for toothpaste and a toothbrush, before I could respond the patient began yelling that I have been asking for personal hygiene and dove soap all day and no one has brought it, you all just think I am a junkie and not worth the air I again attempted deescalation and the patient's aggression did not resolve this time, instead he became angry at this RN for withholding his medications and not providing him with toothpaste. He requested to speak to the Nylon Machine Operator of the hospital for neglect. He then pulled out his phone and stated I am going to record everything from this moment on He got abruptly out of the bed and began pacing, throwing open the bathroom door, nearly hitting this RN while I was standing near computer. At this point this RN began moving towards the door for safety because the patient had corned me near the computer, with the bathroom door open, him and the bed preventing my exit and this RN did not feel safe d/t the anger the patient was exhibiting and how near he was to my body yelling. I called for Bre, axminster rug setter, she came to room. During this conversation with Bre the patient again vented frustrations with staff even stating the acute care nursing assistant is a pedophile and the DIE TRIPPER stood in here cussing me out. He also voiced frustrations with EVS. He stated that this RN was telling the doctor he was refusing medications At this point Bre was able to deescalate the patient. The patient said just give me the subutex and get out I offered the methocarbamol and he refused. Again he stated I am going to record everything on my phone Bre got the patient personal hygiene supplies and hung a do not disturb sign per pt request. He was given the number for the hospital grievance line.
[2018-11-09 17:17] VITALS: BP 107/65; PULSE 64; RESP 18; TEMP 37.3
--- NOTE | 2018-11-09 17:39 | NURSING ---
called to room by primary RN. aware per SPIN TANK TENDER and primary RN pt has been using profanity towards staff including house keeping, laundromat manager, and SPIN TANK TENDER. pt found to be loud, agrumentative, and defensive. Pt verbalized upset with having lab attempting to draw labs around 6am and house keeping cleaning his room in the automotive refinisher as well. Discussed mutual respect and limiting profanity, emotional support given to patient, and verbal de-escalation techniques utilized. Pt given supplies for personal hygiene as well as phone number for patient advocate. Pt agreeable to have sign place on door to limit staff or hospital personal from entering room as occurred this a.m. Pt denies all further needs. Call light within reach.
--- NOTE | 2018-11-09 17:49 | PCA ---
Addendum entered by Radha Moran 11/09/18 18:29: Enrique is pt primary DYE MACHINE TENDER Original Note: Patient was hoping to shower. I knew that Enrique had given him some supplies to shower already so i went in the room and asked him what else he needed. he stated what does anyone fucking need to shower at the hospital? just fucking forget it. I replied Have you seen me all day? no, so clearly I have no idea what you have been given or still need and id appreciate if you didn't have an attitude. Patient states you need to lose your fucking attitude. I walked out and did not enter the room again or speak to the patient the rest of the shift.
[2018-11-09] MEDS: traZODone 50 MG Tablet PO (22:21)
--- NOTE | 2018-11-09 22:28 | NURSING ---
This nurse knocked on pt's door before entering room. Pt. awake in room watching TV. This nurse asked pt. if he would like his scheduled trazadone. Pt. cooperative and pleasant at this time. Trazadone given and water pitcher refilled.
[2018-11-10] MEDS: Buprenorphine HCl 2 MG TAB.SUBL SL ×3 (00:57→21:28)
[2018-11-10 01:00] VITALS: BP 100/53; PULSE 58; RESP 16; TEMP 36.8
--- NOTE | 2018-11-10 01:12 | NURSING ---
This nurse knocked on pt's door and let pt. know that it was time for his scheduled Subutex. This nurse asked if she could take vital signs and perform withdrawl assessment at this time. Pt. was cooperative, pleasant and compliant with assessment and vital signs. Subutex administered.
[2018-11-10 08:20] VITALS: BP 125/65; PULSE 55; RESP 16; TEMP 36.6
[2018-11-10] MEDS: Ondansetron ODT 4 MG Tablet PO (08:27)
--- NOTE | 2018-11-10 09:42 | PCM.PN.HOSP ---
Patient Problems: Active and Suspected Problems Acute opioid withdrawal (Acute) Subjective: Patient with no acute events overnight per self and per nursing report. Patient much more comfortable and less irritable. States symptoms are improved and slept better, not being awoken several times. Amenable to continuing taper. Patient denies fevers, chills, nausea, emesis, abdominal pain, chest pain or dyspnea. Objective: Physical Examination: General: awake, alert, oriented x 3 and cooperative, laying in bed, sits up without issue, much more calm and comfortable appearing. Skin: normal color, turgor, no icterus, cyanosis, recent injection regions noninfected appearing. HEENT: AT/NC, EOMI, PERRLA, improved MMM. Lungs: CTA bilaterally, moderate effort, moderate decrease BL bases, no rales, ronchi or wheezing. Heart: Regular rate and rhythm; no gallop, rub audible. Abdomen: soft, NTTP, ND, normal BS. Extremities: no cyanosis, clubbing, or edema. Neurological: patient awake, alert, oriented x 3; cognitive function intact; pupils equally reactive to light and accomodation; cranial nerves II-XII grossly normal, moving all 4 extremities, no focal deficits, strength improved, mildly global decrease secondary to acute presentation. Psychiatric: affect appears calm, normal, improved, no acute evidence of depressive or anxiety feelings. Vitals/I&O's: Vital Signs Temp Pulse Resp BP Pulse Ox 97.8 F 55 L 16 125/65 H 99 11/10/18 08:20 11/10/18 08:20 11/10/18 08:20 11/10/18 08:20 11/09/18 16:16 Oxygen Delivery Method Room Air Weight: 170 lb Body Mass Index (BMI) 21.8 Intake and Output for Last 24 Hours 11/08/18 11/09/18 11/10/18 23:59 23:59 23:59 Intake Total 400 / 400 1200 / 1200 Balance 400 / 400 1200 / 1200 Current Medications Acetaminophen (Tylenol) 500 mg PO Q4H PRN PRN PRN Reason: Temp > 100.4 F Al Hydroxide/Mg Hydroxide (Mylanta Ii) 30 ml PO Q6H PRN PRN PRN Reason: dyspesia Bisacodyl (Dulcolax) 10 mg RECTAL DAILY PRN PRN Reason: Constipation Buprenorphine HCl (Buprenorphine Hcl) 2 mg SL Q12H LIZET; Taper Stop: 11/11/18 20:59 Last Admin: 11/10/18 08:27 Dose: 2 mg Chlordiazepoxide (Librium) 25 mg PO Q6H PRN PRN PRN Reason: Moderate-Severe Anxiety Last Admin: 11/09/18 16:20 Dose: 25 mg Clonidine (Catapres) 0.1 mg PO Q2H PRN PRN PRN Reason: Hot/Cold Sweats or Anxiety Last Admin: 11/08/18 17:42 Dose: 0.1 mg Dicyclomine HCl (Bentyl) 20 mg PO Q6H PRN PRN PRN Reason: Abdomnial Discomfort Last Admin: 11/09/18 08:41 Dose: 20 mg Hydroxyzine Pamoate (Vistaril Pamoate Capsule) 50 mg PO Q6H PRN PRN PRN Reason: Mild Anxiety Last Admin: 11/08/18 17:42 Dose: 50 mg Ibuprofen (Motrin) 600 mg PO Q8H PRN PRN PRN Reason: Mild-Moderate Pain (1-5/10) Loperamide HCl (Imodium) 2 - 4 mg PO UD PRN PRN Reason: LOOSE STOOLS Methocarbamol (Methocarbamol) 750 mg PO Q6H PRN PRN PRN Reason: Muscle Aches Last Admin: 11/09/18 08:41 Dose: 750 mg Ondansetron HCl (Zofran Odt) 4 mg PO Q6H PRN PRN PRN Reason: NAUSEA Last Admin: 11/10/18 08:27 Dose: 4 mg Pramipexole Dihydrochloride (Mirapex) 0.25 mg PO Q12H PRN PRN PRN Reason: Restless Legs Last Admin: 11/09/18 08:41 Dose: 0.25 mg Quetiapine Fumarate (Seroquel) 25 mg PO Q6H PRN PRN PRN Reason: anxiety, agitation Senna (Senokot) 1 tablet PO QHS PRN PRN Reason: Constipation Trazodone HCl (Desyrel) 50 mg PO QHS LIZET Last Admin: 11/09/18 22:21 Dose: 50 mg Medical Necessity - Tobacco Use Smoking Status: Never smoker Tobacco Use: Non-smoker Assessment/Plan All Active Problems Opiate withdrawal (Acute) Hepatitis C antibody test positive (Acute) Acute opioid withdrawal (Acute) The patient is a 43 y/o M w/ PMHx: Chronic Hepatitis C, IV Heroine usage with history of being recently discharged from [facility] ~5 weeks prior who now re-presents to the [facility] on 11/08/18 with recent IV heroine usage, last usage 2 pm on day prior to admission. (1) Acute Opiate Withdrawal: Admitted to [place], initiated and continued on [facility] service protocol with tapering course of Subutex, as needed Seroquel, Librium, Sinemet, Catapres, Bentyl, Vistaril, IV fluids, IV antiemetics, Tylenol as needed for pain. Once patient clinically improved and completion of taper nearing will plan [facility] assistance for transition to next level of rehabilitation care. Plan discharge 11/11/18 following last taper dose. (2) Polysubstance Abuse, IVDA Hx, History of Hepatitis C, Chronic: Patient currently not candidate for hep C treatment currently as needs to be clean, sober x 6 months, documented attendance NA or AA meetings, counseling and ongoing negative drug screens. Encouraged PCP establishment and follow-up. (3) DVT prophylaxis: Low risk, ambulation. Code Visit Inpatient E&M: 50697 Subs Hosp L2
[2018-11-10 14:00] VITALS: RESP 16
[2018-11-10 18:00] VITALS: BP 123/60; PULSE 57; RESP 16; TEMP 36.9
[2018-11-10] MEDS: traZODone 50 MG Tablet PO (21:30)
[2018-11-10 21:34] VITALS: BP 116/62; PULSE 57; RESP 16; TEMP 36.3
[2018-11-11 06:00] VITALS: BP 134/53; PULSE 65; RESP 16; TEMP 36.6
--- NOTE | 2018-11-11 08:52 | DCINST_ITS ---
- Discharge Diagnoses Current Active Problems: Current Active and Chronic Problems Acute opioid withdrawal (Acute) Chronic hepatitis C (Chronic) You will use the following diet at home:: Regular Your food should be the consistency of: Regular Discharge Activity: Return to Normal Activity Weight Bearing Status: Full weight bearing Call your doctor if you observe: Fever of 101 or Higher, Shortness of breath, Dizziness, Fainting spells, Chest pain, Increased palpitations (irregular heartbeat), Uncontrolled pain Additional Instructions: Please follow-up with the [facility]. Allergies/Adverse Reactions: Allergies No Known Allergies Allergy (Verified 09/27/18 14:01) Medications to take at Discharge NK 09/27/18 Primary Care Physician: Care Physician,No Primary [Primary Care Provider] - Please follow up with your Primary Care Physician in: 4-6 weeks. Test Results: Test results from this visit will be discussed in further detail at your follow- up appointment, if applicable.
[2018-11-11 09:11] VITALS: BP 128/75; PULSE 70; RESP 16; TEMP 37.3
[2018-11-11] MEDS: Buprenorphine HCl 2 MG TAB.SUBL SL (09:16)
--- NOTE | 2018-11-11 12:03 | DS.PCM_ITS ---
Discharge Date and Diagnosis Date of Admission: 11/08/18 Date of Discharge: 11/11/18 - Primary Discharge Diagnosis Acute opioid withdrawal admitted for medical stabilization. - Secondary Discharge Diagnosis Chronic Problems Chronic hepatitis C (Chronic) Hospital Course and Treatment Operations: None Procedures: None Summary of Care Provided: Patient seen and examined on the day of discharge and appeared to be stable to be discharged home. He mentioned that his symptoms of cold sweats, nausea and vomiting as well as restlessness improved. His vital signs are stable. The patient is a 43 year old M presented to the [facility] office requesting admission for acute opioid withdrawal for medical stabilization. Patient was discharged from the hospital 5 weeks ago after admission for acute opioid withdrawal but he relapsed and he started using IV heroin again. His presenting symptoms were nausea, vomiting, diarrhea and abdominal cramps as well as cold sweats and restlessness. His urine drug screen was positive for opioids and cannabinoids. Patient was treated with [facility] protocol with tapering course of Subutex, PRN Seroquel, Librium, Catapres, Bentyl, Vistaril, methocarbamol and ibuprofen. With above-mentioned treatment, patient symptoms improved and he was ready to be discharged home today. Patient discharged home in a stable medical condition, recommended to follow-up with [facility] as outpatient, follow-up with PCP in 4 to 6 weeks. - Physical Exam General: Alert, Oriented x3, Cooperative, No apparent distress HEENT: Atraumatic, PERRLA, EOMI, Normocephalic Oral: Moist Mucosa, No Gingival or Mucosal Lesions/ Ulcerations Neck: Supple, No JVD, Negative Carotid Bruits, Trachea Midline, Thyroid Normal Size and Texture Lungs: Clear to auscultation, No rhonchi, No wheeze, No rales Cardiovascular: Regular rate, Regular Rhythm, Normal S1, Normal S2, PMI Normal Abdomen: Bowel Sounds Present, Soft, Non Tender, Non-Distended, No Hepato- splenomegaly Extremities: No clubbing, No cyanosis, No edema Skin: No rashes, No breakdown Lymphatic: No Cervical, Supraclavicular, or Inguinal Adenopathy Neurological: Cranial nerves II-XII grossly intact, Neuro grossly intact Psych/Mental Status: Normal Affect, Appropriate Vital Signs Temp Pulse Resp BP Pulse Ox 99.1 F 70 16 128/75 H 99 11/11/18 09:11 11/11/18 09:11 11/11/18 09:11 11/11/18 09:11 11/09/18 16:16 Oxygen Delivery Method Room Air Weight: 170 lb Body Mass Index (BMI) 21.8 Intake and Output for Last 24 Hours 11/09/18 11/10/18 11/11/18 23:59 23:59 23:59 Intake Total 400 / 400 3240 / 3240 500 / 500 Balance 400 / 400 3240 / 3240 500 / 500 Discharge Activity: Return to Normal Activity Weight Bearing Status: Full weight bearing Call your doctor if you observe: Fever of 101 or Higher, Shortness of breath, Dizziness, Fainting spells, Chest pain, Increased palpitations (irregular heartbeat), Uncontrolled pain Home Medications: Medications to take at Discharge NK 09/27/18 Primary Care Physician: Care Physician,No Primary [Primary Care Provider] - Please follow up with your Primary Care Physician in: 4-6 weeks. Disposition: Home Minutes spent on discharge:: 26 Patient Condition:: Stable Medical Necessity - Tobacco Use Smoking Status: Never smoker Tobacco Use: Non-smoker Meaningful Use Info Meaningful Use Diagnoses (Choose all that apply): None applicable Code Visit Inpatient E&M: 63338 Disch Hosp
== END 2018-11-11 09:20 | disposition home or self-care (01) | DRG 773 ==
PROVIDERS: Admitting Provider Internal Medicine; Referring Provider Internal Medicine; Visit Provider Hospitalist
DX: F11.23 Opioid dependence with withdrawal (principal); B18.2 Chronic viral hepatitis C
CPT/HCPCS: 80307; 99218; G0378; G0379

== ENCOUNTER 2019-09-04 20:07 | Observation (INO) | payer MEDICAID, SELFPAY ==
[2018-11-08 17:13] VITALS: BMI 21.8
[2019-09-04 20:10] VITALS: BP 109/72; PULSE 84; RESP 17; TEMP 36.3; O2SAT 97; BMI 22.9
--- NOTE | 2019-09-04 20:20 | ED.DCSUM_ITS ---
History of Present Illness Chief Complaint: Substance Abuse Detail of Chief Complaint: wants detox; w/d sx Informant: Patient Onset: Today Context: Gradual Onset Timing: Continuous Current Severity: Moderate Maximum Severity: Moderate Associated Symptoms: anxious/jittery, nausea, abd cramping Narrative: Patient wanting detox from opiates. He snorts/snuffs heroin, fentanyl, what ever he is getting. His last use was earlier today, maybe 8 hours ago, he feels like he is in withdrawal for the last couple hours. Last time he went through detox was about 1 year ago. He was here. He has been using daily/consistently for the past 3 or 4 months. Occasional marijuana but no other drugs or illicit substances. He is not injecting anything. Denies any suicidal ideation. No alcohol use recently. No recent illness including respiratory. No recent travel out of the area. No recent contact with persons with known respiratory illness or covid-19. - Past Medical History (1) Chronic hepatitis C Status: Chronic (2) Barretts esophagus Status: Chronic (3) H. pylori infection Status: Resolved Past Medical History - Allergies and Home Meds Allergies/Adverse Reactions: Allergies No Known Allergies Allergy (Verified 09/04/19 20:08) Primary Care Physician: Care Physician,No Primary [NON-STAFF] - Surgical History: noncontributory Lives: Spouse/ Significant Other Smoking Status: Former smoker Drugs: Heroin, Marijuana - Family History Maternal Family History: Reports: No pertinent history Paternal Family History: Reports: No pertinent history Review of Systems General: Denies: Chills, Fever, Sweats Eyes: Denies: Visual changes - bilaterally, Diplopia ENT: Denies: Rhinorrhea, Sore throat Cardiovascular: Denies: Chest pain, Palpitations Respiratory: Denies: Dyspnea, Cough, Dyspnea on exertion Gastrointestinal: Reports: Abdominal pain, Nausea. Denies: Vomiting, Diarrhea, Melena, Hematochezia Genitourinary: Reports: - - dark urine. decreased po intake due to nausea.. Denies: Dysuria, Hematuria, Frequency Musculoskeletal: Reports: Myalgias. Denies: Neck pain, Back pain, Swelling, Extremity Pain Skin: Denies: Rash, Wounds Neurological: Denies: Headache, Weakness, Numbness Psych: Reports: Anxiety. Denies: Suicidal thoughts, Suicidal ideations Physical Exam Vital Signs/Narrative: Vital Signs Temp Pulse Resp BP Pulse Ox 03/17/20 20:10 97.4 F L 84 17 109/72 97 Inital Vital Signs reviewed: Yes General: Well nourished, Well developed, No Acute Distress Head: Normocephalic, Atraumatic Eyes: Perrl, EOMI ENT: Moist mucous membranes, No rhinorrhea Neck: Supple, Nontender, No lymphadenopathy Cardiovascular: Regular rate, Regular rhythm, No murmurs. Negative for: Tachycardia Respiratory: No distress, CTA bilaterally, Chest nontender Abdomen: Soft, Nondistended, Normal bowel sounds, Tender - mild, LUQ Back: Nontender, Normal Inspection Extremities: Nontender, No edema Skin: Normal color, No rash, No Trauma Neurological: Alert, Oriented x3, Cranial nerves II-XII grossly intact, Normal Strength, Normal Sensation, Normal Gait Psychological: Normal affect, Normal Mood Diagnostic/Tx/Re-eval Laboratory Results 09/04/19 09/04/19 09/04/19 20:35 20:35 20:35 WBC 13.8 H RBC 4.54 L Hgb 13.3 Hct 39.9 L MCV 87.9 MCH 29.3 MCHC 33.3 RDW Std Deviation 41.9 RDW Coeff of Kyle 13.1 Plt Count 244 MPV 9.8 Immature Gran % (Auto) 0.700 Neut % (Auto) 61.3 Lymph % (Auto) 27.1 [place] % (Auto) 9.8 Eos % (Auto) 0.9 Baso % (Auto) 0.2 Absolute Neuts (auto) 8.4 H Absolute Lymphs (auto) 3.73 Nucleated RBC % 0 PT INR Sodium 137 Potassium 3.5 Chloride 103 Carbon Dioxide 27.0 Anion Gap 7 BUN 21 H Creatinine 1.11 Estim Creat Clear Calc 97.42 Est GFR (MDRD) Af Amer 92 Est GFR (MDRD) Non-Af 76 BUN/Creatinine Ratio 18.9 Glucose 76 Calcium 8.8 Total Bilirubin 1.10 H AST 17 ALT 27 Alkaline Phosphatase 67 Total Protein 7.4 Albumin 3.8 Globulin 3.6 Albumin/Globulin Ratio 1.1 Urine Opiates Screen Urine Methadone Screen Ur Barbiturates Screen Ur Phencyclidine Scrn Ur Amphetamines Screen U Methamphetamin-MDMA U Benzodiazepines Scrn Urine Cocaine Screen U Cannabinoids Screen Ur Drug Screen Comment Ethyl Alcohol < 3.0 09/04/19 09/04/19 20:35 20:45 WBC RBC Hgb Hct MCV MCH MCHC RDW Std Deviation RDW Coeff of Kyle Plt Count MPV Immature Gran % (Auto) Neut % (Auto) Lymph % (Auto) [place] % (Auto) Eos % (Auto) Baso % (Auto) Absolute Neuts (auto) Absolute Lymphs (auto) Nucleated RBC % PT 15.1 H INR 1.2 Sodium Potassium Chloride Carbon Dioxide Anion Gap BUN Creatinine Estim Creat Clear Calc Est GFR (MDRD) Af Amer Est GFR (MDRD) Non-Af BUN/Creatinine Ratio Glucose Calcium Total Bilirubin AST ALT Alkaline Phosphatase Total Protein Albumin Globulin Albumin/Globulin Ratio Urine Opiates Screen POSITIVE H Urine Methadone Screen NEGATIVE Ur Barbiturates Screen NEGATIVE Ur Phencyclidine Scrn NEGATIVE Ur Amphetamines Screen POSITIVE H U Methamphetamin-MDMA NEGATIVE U Benzodiazepines Scrn NEGATIVE Urine Cocaine Screen NEGATIVE U Cannabinoids Screen POSITIVE H Ur Drug Screen Comment Ethyl Alcohol - Medical Decision Making Patient was treated with Ativan which is helping his withdrawal symptoms. His medical screening is unremarkable including ancillaries. His toxicology shows opioids, marijuana which he agrees to, and amphetamines, which he is not knowingly ingesting. He states sometimes I do not know what I am getting. He is interested in detoxing from everything, however. Discussed with hospitalist for admission for detox. ED Disposition - Plan for ED Patient: Disposition: Acute Care Hospital [facility] Diagnosis: Acute opioid withdrawal, Opioid dependence Referrals: Care Physician,No Primary [NON-STAFF] -
[2019-09-04] MEDS: Ondansetron ODT 4 MG Tablet 8 MG PO (20:49)
[2019-09-04] MEDS: LORazepam 1 MG Tablet 2 MG PO (20:49)
[2019-09-04 20:54] LABS: Absolute Lymphocyte Count 3.73 X10^3/uL (0.83-4.51); Absolute Neutrophil Count 8.4 X10^3/uL (2.0-7.7); Basophil# 0.03 X10^3/uL; Basophil% 0.2 % (0-1); Eosinophil# 0.13 X10^3/uL; Eosinophils% 0.9 % (0-5); Hematocrit 39.9 % (40-54); Hemoglobin 13.3 g/dL (13.0-16.5); Lymphocyte # 3.73 X10^3/ul (4.0); Lymphocyte % 27.1 % (19-41); Mean Corp Hgb Conc 33.3 g/dL (32-36); Mean Corpuscular Hgb 29.3 pg (27.0-32.0); Mean Corpuscular Volume 87.9 fL (80-94); Mean Platelet Vol. 9.8 fl (6.2-12.0); Monocyte# 1.35 X10^3/uL; Monocyte% 9.8 % (0-10); NRBC Flagged by Analyzer 0 % (0-5); Neutrophil # 8.44 X10^3/uL (2.7-7.7); Neutrophil % 61.3 % (47-70); Platelet Count 244 K/mm3 (150-450); RBC Distribution Width CV 13.1 % (11.6-14.6); RBC Distribution Width SD 41.9 fl (35.1-43.9); Red Blood Count 4.54 M/mm3 (4.6-6.2); White Blood Count 13.8 K/mm3 (4.4-11.0)
[2019-09-04 20:59] LABS: International Normalized Ratio 1.2; Prothrombin Time (Protime)PT. 15.1 SECONDS (11.7-14.9)
[2019-09-04 21:02] LABS: ALB/GLOB Ratio 1.1 RATIO (0.9-2.4); AST(SGOT) 17 U/L (15-37); Alanine Aminotransfer ALT/SGPT 27 U/L (16-61); Albumin, Serum 3.8 g/dL (3.2-5.0); Alkaline Phosphatase 67 U/L (45-117); Anion Gap 7 (5-15); BUN 21 mg/dL (7-18); BUN/Creat Ratio 18.9 RATIO (10-20); Calcium,Total 8.8 mg/dL (8.5-10.1); Chloride 103 mmol/L (98-107); Creatinine, Serum 1.11 mg/dL (0.70-1.30); EST Glomerular Filtration Rate 76 mL/min (>60); Est Glom Filt Rate - Afr Amer 92 mL/min (>60); Estimated Creatinine Clearance 97.42 ml/min; Globulin 3.6 g/dL (2.2-4.2); Glucose 76 mg/dL (74-106); Potassium 3.5 mmol/L (3.5-5.1); Protein, Total 7.4 g/dL (6.4-8.2); Sodium Level 137 mmol/L (136-145)
[2019-09-04 21:19] LABS: Amphetamine Urine VISTA POSITIVE (<1000 ng/mL); Barbiturate Urine VISTA NEGATIVE (< 200 ng/mL); Benzodiazepine Urine VISTA NEGATIVE (< 200 ng/mL); Cocaine Urine VISTA NEGATIVE (< 300 ng/mL); Ecstacy Urine VISTA NEGATIVE (< 500 ng/mL); Methadone Urine VISTA NEGATIVE (< 300 ng/mL); PCP Urine VISTA NEGATIVE (< 25 ng/mL); THC Urine VISTA POSITIVE (< 50 ng/mL); Vista UDS pH Range 6
[2019-09-04 21:55] LABS: Alcohol, Blood (Medical)-Serum < 3.0 mg/dL
--- NOTE | 2019-09-04 22:09 | HP.PCM_ITS ---
Problem List (1) Opioid withdrawal Status: Inactive (2) Opiate withdrawal Status: Inactive (3) Hepatitis C antibody test positive Status: Inactive (4) Acute opioid withdrawal Status: Acute (5) Chronic hepatitis C Status: Chronic Qualifiers: Hepatic coma status: without hepatic coma Qualified Code(s): B18.2 - Chronic viral hepatitis C (6) Barretts esophagus Status: Chronic (7) H. pylori infection Status: Inactive (8) Opioid dependence Status: Chronic History of Present Illness Date of Admission: 09/04/19 Chief Complaint: opioid withdrawal The patient is a 43 year old M with a significant history of opiate dependence who presented with opioid withdrawal symptoms and requesting detoxification. R eportedly he snorts heroin and fentanyl. The last time he snorted heroin or fentanyl was few hours before presentation. Patient reports withdrawal symptoms of tremors; muscle aches; stomach ache; hot flashes; and restless legs. At emergency department his urine drug screen was positive for opiates; amphetamines; and cannabinoids. Reportedly he does not intentionally use amphetamines and thinks that the heroin that he buys might have been laced with amphetamines. Patient was at a hospital about a year ago for detoxification from opiates. Past Medical History Past Medical History (Chronic Problems): Chronic Problems Chronic hepatitis C (Chronic) Barretts esophagus (Chronic) Opioid dependence (Chronic) Allergies No Known Allergies Allergy (Verified 09/04/19 20:08) Home Medications: Ambulatory Orders Medication Instructions Recorded Metoclopramide HCl 10 mg PO 4X/DAY PRN PRN 09/04/19 Omeprazole Magnesium [Prilosec Otc] 20 mg PO DAILY 09/04/19 Surgical History: no surgical history Psychiatric History: No pertinent psych hx Lives: Spouse/ Significant Other Smoking Status: Former smoker Tobacco Use: Chew Drugs: Heroin, Marijuana - *Family History Maternal History Items: - - Denies maternal medical history of drug use or any other medical condition. Paternal History Items: - - Alcoholism Review of Systems Constitutional: Denies: Chills, Fever, Weight Change HEENT: Denies: Head Aches, Sinus Congestion, Sinus Drainage Cardiovascular: Denies: Chest Pain, Palpitations Respiratory: Denies: Cough, Shortness of breath at rest, Sputum production Gastrointestinal: Denies: Abdominal Pain, Nausea, Vomiting Genitourinary: Denies: Dysuria Musculoskeletal: Reports: Muscle pain. Denies: Joint Pain, Joint Tenderness Skin: Denies: Rash, Wounds Neurological: Denies: Numbness, Tingling, Focal weakness Psychiatric: Reports: Anxiety. Denies: Depression, Homicidal Ideations, Suicidal Ideations Hematologic/ Lymphatic: Denies: Easy Bruising, Easy Bleeding VTE Information - Inpt Only VTE Present on Admission: No VTE Mechan Device Prophylaxis: None VTE Pharm Prophylaxis ordered?: No Reason prophylaxis not ordered:: Treatment Not Indicated - Low risk, encourage ambulate. Patient Problems: Active and Suspected Problems Acute opioid withdrawal (Acute) - Physical Exam Vitals/I&O's: Vital Signs Temp Pulse Resp BP Pulse Ox 97.4 F L 84 17 109/72 97 09/04/19 20:10 09/04/19 20:10 09/04/19 20:10 09/04/19 20:10 09/04/19 20:10 Oxygen Delivery Method Room Air Weight: 81.1 kg Body Mass Index (BMI) 22.9 General: Alert, Oriented x3, Cooperative HEENT: Atraumatic, PERRLA, EOMI, Normocephalic Neck: Supple, No JVD, Negative Carotid Bruits Lungs: Clear to auscultation, Normal air movement Cardiovascular: Regular rate, No murmurs Abdomen: Bowel Sounds Present, Soft, Non Tender Extremities: No edema, Capillary Refill Less than 3 Seconds Skin: No rashes, No breakdown Musculoskeletal: No Tenderness to Palpation of Joints or Extremities Neurological: Cranial nerves II-XII grossly intact Psych/Mental Status: Normal Affect, Appropriate Laboratory Results 09/04/19 20:35: WBC 13.8 H, RBC 4.54 L, Hgb 13.3, Hct 39.9 L, MCV 87.9, MCH 29.3, MCHC 33.3, RDW Std Deviation 41.9, RDW Coeff of Kyle 13.1, Plt Count 244, MPV 9.8, Immature Gran % (Auto) 0.700, Neut % (Auto) 61.3, Lymph % (Auto) 27.1, [place] % (Auto) 9.8, Eos % (Auto) 0.9, Baso % (Auto) 0.2, Absolute Neuts (auto) 8.4 H, Absolute Lymphs (auto) 3.73, Nucleated RBC % 0 03/17/20 20:35: Sodium 137, Potassium 3.5, Chloride 103, Carbon Dioxide 27.0, Anion Gap 7, BUN 21 H, Creatinine 1.11, Estim Creat Clear Calc 97.42, Est GFR (MDRD) Af Amer 92, Est GFR (MDRD) Non-Af 76, BUN/Creatinine Ratio 18.9, Glucose 76, Calcium 8.8, Total Bilirubin 1.10 H, AST 17, ALT 27, Alkaline Phosphatase 67, Total Protein 7.4, Albumin 3.8, Globulin 3.6, Albumin/Globulin Ratio 1.1 09/04/19 20:35: Ethyl Alcohol < 3.0 09/04/19 20:35: PT 15.1 H, INR 1.2 09/04/19 20:45: Urine Opiates Screen POSITIVE H, Urine Methadone Screen NEGATIVE, Ur Barbiturates Screen NEGATIVE, Ur Phencyclidine Scrn NEGATIVE, Ur Amphetamines Screen POSITIVE H, U Methamphetamin-MDMA NEGATIVE, U Benzodiazepines Scrn NEGATIVE, Urine Cocaine Screen NEGATIVE, U Cannabinoids Screen POSITIVE H, Ur Drug Screen Comment Assessment/Plan All Active Problems Acute opioid withdrawal (Acute) The patient is a 43 year old M with a significant history of opiate dependence who presented with opioid withdrawal symptoms and requesting detoxification. Opiate dependence and withdrawal Placed on buprenorphine taper with other adjunctive medications. Counseled. Marijuana abuse Counseled. DVT prophylaxis Low risk encouraged to ambulate. Inpatient E&M: 69252 Init Hosp L2
[2019-09-04 22:29] VITALS: BP 105/70; PULSE 67; RESP 14; TEMP 36.7; O2SAT 96
[2019-09-04 23:10] VITALS: BP 102/60; PULSE 68; RESP 18; TEMP 36.5; O2SAT 95
[2019-09-04 23:11] VITALS: BMI 22.5
[2019-09-04 23:23] VITALS: BMI 22.6
[2019-09-04 23:24] VITALS: O2SAT 96
[2019-09-05 04:55] VITALS: BP 106/68; PULSE 68; RESP 18; TEMP 36.4; O2SAT 95
[2019-09-05] MEDS: Buprenorphine HCl 2 MG TAB.SUBL SL ×3 (05:05→21:02)
[2019-09-05 07:28] VITALS: O2SAT 95
--- NOTE | 2019-09-05 08:49 | PCM.PROGNOTE ---
Patient Problems: Active and Suspected Problems Acute opioid withdrawal (Acute) Subjective: Chief complaint: Follow-up after admission for acute opioid withdrawal. Patient seen and examined. No acute events overnight. Still complaining of muscle aches and pains with minimal improvement. Restlessness improved minimally. Denied abdominal pain or cramps, no diarrhea. Vital signs are stable. - Physical Exam Vitals/I&O's: Vital Signs Temp Pulse Resp BP Pulse Ox 97.6 F L 68 18 106/68 95 09/05/19 04:55 09/05/19 04:55 09/05/19 04:55 09/05/19 04:55 09/05/19 07:28 Oxygen Delivery Method Room Air Weight: 175 lb 11.335 oz Body Mass Index (BMI) 22.5 General: Alert, Oriented x3, Cooperative, No apparent distress HEENT: Atraumatic, PERRLA, EOMI, Normocephalic Oral: Moist Mucosa, No Gingival or Mucosal Lesions/ Ulcerations Neck: Supple, No JVD, Negative Carotid Bruits, Trachea Midline, Thyroid Normal Size and Texture Lungs: Clear to auscultation, Normal air movement, No rhonchi, No wheeze, No rales Cardiovascular: Regular rate, Regular Rhythm, Normal S1, Normal S2, No murmurs, PMI Normal Abdomen: Bowel Sounds Present, Soft, Non Tender, Non-Distended, No Hepato-splenomegaly Extremities: No clubbing, No cyanosis, No edema Skin: No rashes, No breakdown Lymphatic: No Cervical, Supraclavicular, or Inguinal Adenopathy Neurological: Cranial nerves II-XII grossly intact, Motor Exam 5/5 strength throughout Psych/Mental Status: Normal Affect, Appropriate, Alert and oriented to time, place, person, mood and affect Laboratory Results 09/04/19 20:35: WBC 13.8 H, RBC 4.54 L, Hgb 13.3, Hct 39.9 L, MCV 87.9, MCH 29.3, MCHC 33.3, RDW Std Deviation 41.9, RDW Coeff of Kyle 13.1, Plt Count 244, MPV 9.8, Immature Gran % (Auto) 0.700, Neut % (Auto) 61.3, Lymph % (Auto) 27.1, [place] % (Auto) 9.8, Eos % (Auto) 0.9, Baso % (Auto) 0.2, Absolute Neuts (auto) 8.4 H, Absolute Lymphs (auto) 3.73, Nucleated RBC % 0 09/04/19 20:35: Sodium 137, Potassium 3.5, Chloride 103, Carbon Dioxide 27.0, Anion Gap 7, BUN 21 H, Creatinine 1.11, Estim Creat Clear Calc 97.42, Est GFR (MDRD) Af Amer 92, Est GFR (MDRD) Non-Af 76, BUN/Creatinine Ratio 18.9, Glucose 76, Calcium 8.8, Total Bilirubin 1.10 H, AST 17, ALT 27, Alkaline Phosphatase 67, Total Protein 7.4, Albumin 3.8, Globulin 3.6, Albumin/Globulin Ratio 1.1 09/04/19 20:35: Ethyl Alcohol < 3.0 09/04/19 20:35: PT 15.1 H, INR 1.2 09/04/19 20:45: Urine Opiates Screen POSITIVE H, Urine Methadone Screen NEGATIVE, Ur Barbiturates Screen NEGATIVE, Ur Phencyclidine Scrn NEGATIVE, Ur Amphetamines Screen POSITIVE H, U Methamphetamin-MDMA NEGATIVE, U Benzodiazepines Scrn NEGATIVE, Urine Cocaine Screen NEGATIVE, U Cannabinoids Screen POSITIVE H, Ur Drug Screen Comment Current Medications Acetaminophen (Tylenol) 650 mg PO Q6H PRN PRN PRN Reason: Pain Score 1-10/Temp > 100.7 F Buprenorphine HCl (Buprenorphine Hcl) 4 mg SL Q8H LIZET; Taper Stop: 09/08/19 04:59 Last Admin: 09/05/19 05:05 Dose: 4 mg Documented by: Clonidine (Catapres) 0.1 mg PO Q8H PRN PRN PRN Reason: RESTLESSNESS Dicyclomine HCl (Bentyl) 20 mg PO Q6H PRN PRN PRN Reason: Abdominal Discomfort Gabapentin (Neurontin) 300 mg PO Q8H PRN PRN PRN Reason: moderate to severe anxiety Glucagon () 1 mg IM .X1 PRN PRN Reason: Hypoglycemia Hydroxyzine Pamoate (Vistaril Pamoate Capsule) 50 mg PO Q6H PRN PRN PRN Reason: mild anxiety Dextrose (Dextrose 10%-Water) 250 mls @ 999 mls/hr IV .Q16M PRN; Protocol PRN Reason: HYPOGLYCEMIA Loperamide HCl (Imodium) 2 mg PO Q4H PRN PRN PRN Reason: LOOSE STOOLS Methocarbamol (Methocarbamol) 1,500 mg PO Q6H PRN PRN PRN Reason: MUSCLE SPASM Ondansetron HCl (Zofran Odt) 8 mg PO Q8H PRN PRN PRN Reason: NAUSEA Trazodone HCl (Desyrel) 100 mg PO QHS PRN PRN PRN Reason: INSOMNIA Medical Necessity - Tobacco Use Smoking Status: Never smoker Tobacco Use: Chew Assessment/Plan All Active Problems Acute opioid withdrawal (Acute) This is a 43 years old male patient presented to the emergency room requesting admission for acute opioid withdrawal for medical stabilization. #1 acute opioid withdrawal: He is on tapering Subutex, PRN Catapres, Bentyl, Neurontin, Vistaril, Imodium, methocarbamol, Zofran and nightly trazodone. His vital signs are stable. Reported minimal improvement of his symptoms. Routine blood work was remarkable for mild leukocytosis, otherwise normal. LFT was unremarkable. Urine drug screen was positive for opioids, amphetamines and cannabinoids. Blood alcohol level is less than 3. Plan to continue same treatment. #2 Steele's esophagus/GERD: Initiate Protonix daily. #3 DVT prophylaxis: Low risk patient, no prophylaxis indicated. This note was generated with [employer] dictation software. It may contain incorrect words, spelling, and punctuation that were not noted in checking the note before signing. Inpatient E&M: 14648 [facility] Hosp L2
--- NOTE | 2019-09-05 09:09 | CASEMGMT ---
Addendum entered by Alpa Kimble 09/05/19 14:21: VALERIE received message from Lilia at [facility] stating she is likely not able to make it to [facility] today, will hopefully be at [facility] tomorrow to complete assessment with pt. Original Note: Social Work Note Pt is listed as RAMP pt. SW placed a call to Lilia at [facility] and informed her of pt's admission to [facility]. 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
[2019-09-05 11:19] VITALS: BP 94/59; PULSE 63; RESP 18; TEMP 36.4; O2SAT 96
[2019-09-05] MEDS: Pantoprazole Sodium 40 MG Tablet PO (11:23)
[2019-09-05 20:59] VITALS: BP 111/58; PULSE 52; RESP 16; TEMP 36.6; O2SAT 98
[2019-09-06] MEDS: Buprenorphine HCl 2 MG TAB.SUBL SL ×3 (04:03→20:56)
[2019-09-06 04:07] VITALS: BP 113/68; PULSE 60; RESP 16; TEMP 36.5; O2SAT 98
--- NOTE | 2019-09-06 08:01 | PCM.PROGNOTE ---
Patient Problems: Active and Suspected Problems Acute opioid withdrawal (Acute) Subjective: Chief complaint: Follow-up after admission for acute opioid withdrawal. Patient seen and examined. No acute events overnight. He is feeling better, muscle aches and pains significantly improved. Restlessness intermittently but also improved. Complains of some epigastric discomfort because of history of Steele's esophagus. He is on Protonix. Vital signs are stable. - Physical Exam Vitals/I&O's: Vital Signs Temp Pulse Resp BP Pulse Ox 97.7 F L 60 16 113/68 98 09/06/19 04:07 09/06/19 04:07 09/06/19 04:07 09/06/19 04:07 09/06/19 04:07 Oxygen Delivery Method Room Air Weight: 175 lb 11.335 oz Body Mass Index (BMI) 22.5 Intake and Output for Last 24 Hours 09/04/19 09/05/19 09/06/19 23:59 23:59 23:59 Intake Total 680 / 680 200 / 200 Balance 680 / 680 200 / 200 General: Alert, Oriented x3, Cooperative, No apparent distress HEENT: Atraumatic, PERRLA, EOMI, Normocephalic Oral: Moist Mucosa, No Gingival or Mucosal Lesions/ Ulcerations Neck: Supple, No JVD, Negative Carotid Bruits, Trachea Midline, Thyroid Normal Size and Texture Lungs: Clear to auscultation, Normal air movement, No rhonchi, No wheeze, No rales, Diminished Cardiovascular: Regular rate, Regular Rhythm, Normal S1, Normal S2, PMI Normal Abdomen: Bowel Sounds Present, Soft, Non Tender, Non-Distended, No Hepato-splenomegaly Extremities: No clubbing, No cyanosis, No edema Skin: No rashes, No breakdown Lymphatic: No Cervical, Supraclavicular, or Inguinal Adenopathy Neurological: Cranial nerves II-XII grossly intact, Neuro grossly intact Psych/Mental Status: Normal Affect, Appropriate Current Medications Acetaminophen (Tylenol) 650 mg PO Q6H PRN PRN PRN Reason: Pain Score 1-10/Temp > 100.7 F Buprenorphine HCl (Buprenorphine Hcl) 2 mg SL Q8H LIZET; Taper Stop: 09/08/19 04:59 Last Admin: 09/06/19 04:03 Dose: 2 mg Documented by: Clonidine (Catapres) 0.1 mg PO Q8H PRN PRN PRN Reason: RESTLESSNESS Dicyclomine HCl (Bentyl) 20 mg PO Q6H PRN PRN PRN Reason: Abdominal Discomfort Gabapentin (Neurontin) 300 mg PO Q8H PRN PRN PRN Reason: moderate to severe anxiety Glucagon () 1 mg IM .X1 PRN PRN Reason: Hypoglycemia Hydroxyzine Pamoate (Vistaril Pamoate Capsule) 50 mg PO Q6H PRN PRN PRN Reason: mild anxiety Dextrose (Dextrose 10%-Water) 250 mls @ 999 mls/hr IV .Q16M PRN; Protocol PRN Reason: HYPOGLYCEMIA Loperamide HCl (Imodium) 2 mg PO Q4H PRN PRN PRN Reason: LOOSE STOOLS Methocarbamol (Methocarbamol) 1,500 mg PO Q6H PRN PRN PRN Reason: MUSCLE SPASM Ondansetron HCl (Zofran Odt) 8 mg PO Q8H PRN PRN PRN Reason: NAUSEA Pantoprazole Sodium (Protonix) 40 mg PO DAILY LIZET Last Admin: 09/05/19 11:23 Dose: 40 mg Documented by: Trazodone HCl (Desyrel) 100 mg PO QHS PRN PRN PRN Reason: INSOMNIA Medical Necessity - Tobacco Use Smoking Status: Never smoker Tobacco Use: Chew Assessment/Plan All Active Problems Acute opioid withdrawal (Acute) This is a 43 years old male patient presented to the emergency room requesting admission for acute opioid withdrawal for medical stabilization. #1 acute opioid withdrawal: He is on day 2 of tapering Subutex, PRN Catapres, Bentyl, Neurontin, Vistaril, Imodium, methocarbamol, Zofran and nightly trazodone. His vital signs are stable. Symptoms continue to improve, muscle aches and pains significantly improved. Routine blood work was remarkable for mild leukocytosis, otherwise normal. LFT was unremarkable. Urine drug screen was positive for opioids, amphetamines and cannabinoids. Blood alcohol level is less than 3. Plan to continue same treatment. #2 Steele's esophagus/GERD: Still complaining of mild epigastric discomfort, continue Protonix. #3 DVT prophylaxis: Low risk patient, no prophylaxis indicated. This note was generated with [employer] software. It may contain incorrect words, spelling, and punctuation that were not noted in checking the note before signing. Inpatient E&M: 37271 [facility] Hosp L2
[2019-09-06] MEDS: Pantoprazole Sodium 40 MG Tablet PO (09:00)
[2019-09-06 09:06] VITALS: BP 117/58; PULSE 62; RESP 18; TEMP 36.7; O2SAT 96
--- NOTE | 2019-09-06 14:04 | CASEMGMT ---
Addendum entered by Alpa Kimble 09/06/19 15:34: SW did attempt to see pt, pt had sign on door to not disrupt pt at this time. Addendum entered by Alpa Kimble 09/06/19 15:17: SW [facility] and left message asking if she will be at [facility] today to see pt. VALERIE called both Lilia's office number and cell phone number. SW waiting for call back. Original Note: Social Work Note SW placed a call to [facility] and left message asking if she will be coming to [facility] today to visit pt. SW waiting for call back. 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
[2019-09-06 15:41] VITALS: BP 117/75; PULSE 56; RESP 18; TEMP 37.1; O2SAT 97
[2019-09-06 21:21] VITALS: BP 123/82; PULSE 62; RESP 16; TEMP 36.6; O2SAT 95
[2019-09-07 04:36] VITALS: BP 114/63; PULSE 62; RESP 16; TEMP 36.6; O2SAT 96
[2019-09-07] MEDS: Buprenorphine HCl 2 MG TAB.SUBL SL ×2 (04:52→16:00)
--- NOTE | 2019-09-07 08:02 | PCM.DC ---
- Discharge Diagnoses Current Active Problems: Current Active and Chronic Problems Acute opioid withdrawal (Acute) Opioid dependence (Chronic) You will use the following diet at home:: Regular Your food should be the consistency of: Regular Discharge Activity: Return to Normal Activity Weight Bearing Status: Full weight bearing Call your doctor if you observe: Fever of 101 or Higher, Shortness of breath, Dizziness, Fainting spells, Chest pain, Increased palpitations (irregular heartbeat), Uncontrolled pain Additional Instructions: Please follow-up with the [facility] program. Allergies/Adverse Reactions: Allergies No Known Allergies Allergy (Verified 09/04/19 20:08) Medications to take at Discharge Metoclopramide HCl 10 mg PO 4X/DAY PRN PRN 09/04/19 Omeprazole Magnesium [Prilosec Otc] 20 mg PO DAILY 09/04/19 traZODone [Desyrel] 50 mg PO QHS #30 tab 09/07/19 The following prescriptions were given: traZODone [Desyrel] 50 mg PO QHS #30 tab Transmission Status: Pending to [facility] Primary Care Physician: Care Physician,No Primary [NON-STAFF] - Please follow up with your Primary Care Physician in: 4 weeks. Test Results: Test results from this visit will be discussed in further detail at your follow-up appointment, if applicable.
[2019-09-07 09:25] VITALS: PULSE 56
[2019-09-07 09:29] VITALS: BP 128/74; PULSE 58; RESP 16; TEMP 36.6; O2SAT 99
--- NOTE | 2019-09-07 09:29 | CASEMGMT ---
Social Work Note VALERIE received message from Lilia at [facility] late yesterday stating she was sick yesterday and sick today so she will not be coming to [facility] to see pt. SW in to speak with pt. SW introduced self and role at [facility]. Pt sleeping when this worker entered the room but woke up. Pt states that he has follow up plans in place and he plans on following up with [facility] at discharge. SW asked pt about this worker making an appointment for him and pt denied wanting an appointment made, states he will call [facility] when he returns home. Pt denied additional needs or concerns at this time. Alpa Kimble ONCOLOGY PHYSICIAN, SUPERVISOR INSPECTION ROOM
[2019-09-07] MEDS: Pantoprazole Sodium 40 MG Tablet PO (09:33)
--- NOTE | 2019-09-07 10:21 | DS.PCM_ITS ---
Discharge Date and Diagnosis - Problem List Patient Problems: Active and Suspected Problems Acute opioid withdrawal (Acute) Date of Admission: 09/04/19 Date of Discharge: 09/07/19 - Primary Discharge Diagnosis Active and Suspected Problems Acute opioid withdrawal admitted for medical stabilization - Secondary Discharge Diagnosis Chronic Problems Chronic hepatitis C (Chronic) Barretts esophagus (Chronic) Opioid dependence (Chronic) Hospital Course and Treatment Operations: None Procedures: None Summary of Care Provided: Patient seen and examined on the day of discharge and appeared to be stable to be discharged home. Symptoms of muscle aches and restlessness significantly improved. He requested trazodone to go home with for insomnia. Vital signs are stable. The patient is a 43 year old M presented to the emergency room requesting admission for medical stabilization for acute opioid withdrawal. Patient has been snorting heroin and fentanyl. His main presenting symptoms were tremors, muscle aches, stomach aches and restless legs. His routine blood work was remar kable for mild leukocytosis, otherwise normal. LFT was unremarkable. Urine drug screen was positive for opioids, amphetamines and cannabinoids. Blood alcohol level was less than 3. Patient did have a history of admission for detoxification but he relapsed. He was treated with tapering course of Subutex, PRN Catapres, Bentyl, Vistaril, Imodium, methocarbamol and Zofran as well as trazodone. With treatment, his symptoms improved and he felt significantly better. He will be seen by the [facility] before discharge today. His vital signs are stable. Patient discharged home in a stable condition, discharged on trazodone nightly for insomnia, continue with on his previous home medications, plan to follow-up with [facility] program as outpatient, recommended follow-up with PCP in 4 weeks. Patient Problems: Active and Suspected Problems Acute opioid withdrawal (Acute) - Physical Exam Vitals/I&O's: Vital Signs Temp Pulse Resp BP Pulse Ox 97.9 F 58 L 16 128/74 H 99 09/07/19 09:29 09/07/19 09:29 09/07/19 09:29 09/07/19 09:29 09/07/19 09:29 Oxygen Delivery Method Room Air Weight: 175 lb 11.335 oz Body Mass Index (BMI) 22.5 Intake and Output for Last 24 Hours 09/05/19 09/06/19 09/07/19 23:59 23:59 23:59 Intake Total 680 / 680 600 / 600 890 / 890 Balance 680 / 680 600 / 600 890 / 890 General: Alert, Oriented x3, Cooperative, No apparent distress HEENT: Atraumatic, PERRLA, EOMI, Normocephalic Oral: Moist Mucosa, No Gingival or Mucosal Lesions/ Ulcerations Neck: Supple, No JVD, Negative Carotid Bruits, Trachea Midline, Thyroid Normal Size and Texture Lungs: Clear to auscultation, Normal air movement, No rhonchi, No wheeze, No rales Cardiovascular: Regular rate, Regular Rhythm, Normal S1, Normal S2, No murmurs, PMI Normal Abdomen: Bowel Sounds Present, Soft, Non Tender, Non-Distended, No Hepato- splenomegaly Extremities: No clubbing, No cyanosis, No edema Skin: No rashes, No breakdown Lymphatic: No Cervical, Supraclavicular, or Inguinal Adenopathy Neurological: Cranial nerves II-XII grossly intact, Neuro grossly intact Psych/Mental Status: Normal Affect, Appropriate Current Medications Acetaminophen (Tylenol) 650 mg PO Q6H PRN PRN PRN Reason: Pain Score 1-10/Temp > 100.7 F Buprenorphine HCl (Buprenorphine Hcl) 2 mg SL Q12H LIZET; Taper Stop: 09/08/19 04:59 Last Admin: 09/07/19 04:52 Dose: 2 mg Documented by: Clonidine (Catapres) 0.1 mg PO Q8H PRN PRN PRN Reason: RESTLESSNESS Dicyclomine HCl (Bentyl) 20 mg PO Q6H PRN PRN PRN Reason: Abdominal Discomfort Gabapentin (Neurontin) 300 mg PO Q8H PRN PRN PRN Reason: moderate to severe anxiety Glucagon () 1 mg IM .X1 PRN PRN Reason: Hypoglycemia Hydroxyzine Pamoate (Vistaril Pamoate Capsule) 50 mg PO Q6H PRN PRN PRN Reason: mild anxiety Dextrose (Dextrose 10%-Water) 250 mls @ 999 mls/hr IV .Q16M PRN; Protocol PRN Reason: HYPOGLYCEMIA Loperamide HCl (Imodium) 2 mg PO Q4H PRN PRN PRN Reason: LOOSE STOOLS Methocarbamol (Methocarbamol) 1,500 mg PO Q6H PRN PRN PRN Reason: MUSCLE SPASM Ondansetron HCl (Zofran Odt) 8 mg PO Q8H PRN PRN PRN Reason: NAUSEA Pantoprazole Sodium (Protonix) 40 mg PO DAILY LIZET Last Admin: 09/07/19 09:33 Dose: 40 mg Documented by: Trazodone HCl (Desyrel) 100 mg PO QHS PRN PRN PRN Reason: INSOMNIA Discharge Activity: Return to Normal Activity Weight Bearing Status: Full weight bearing Call your doctor if you observe: Fever of 101 or Higher, Shortness of breath, Dizziness, Fainting spells, Chest pain, Increased palpitations (irregular heartbeat), Uncontrolled pain Home Medications: Medications to take at Discharge Metoclopramide HCl 10 mg PO 4X/DAY PRN PRN 09/04/19 Omeprazole Magnesium [Prilosec Otc] 20 mg PO DAILY 09/04/19 traZODone [Desyrel] 50 mg PO QHS #30 tab 09/07/19 Following Prescrptions Were Given to Patient: traZODone [Desyrel] 50 mg PO QHS #30 tab Transmission Status: Received by [facility] Primary Care Physician: Care Physician,No Primary [NON-STAFF] - Please follow up with your Primary Care Physician in: 4 weeks. Disposition: Home Minutes spent on discharge:: 26 Medical Necessity - Tobacco Use Smoking Status: Never smoker Tobacco Use: Chew Meaningful Use Info Meaningful Use Diagnoses (Choose all that apply): None applicable Inpatient E&M: 56818 Disch Hosp
[2019-09-07 15:52] VITALS: BP 130/94; PULSE 66; RESP 18; TEMP 36.8; O2SAT 100
[2019-09-07 15:54] VITALS: BP 130/94; PULSE 66; RESP 18; TEMP 36.8; O2SAT 100
== END 2019-09-07 16:05 | disposition home or self-care (01) | DRG 773 ==
LOC: ED 20:44 → MS3 22:39
PROVIDERS: Admitting Provider Hospitalist; Emergency Provider Emergency Medicine; Visit Provider Hospitalist
DX: F11.23 Opioid dependence with withdrawal (principal); B18.2 Chronic viral hepatitis C; F12.10 Cannabis abuse, uncomplicated; K22.70 Barrett's esophagus without dysplasia; Z87.891 Personal history of nicotine dependence
CPT/HCPCS: 36415; 80053; 80307; 80320; 85025; 85610; 99218; 99284; H0012; G0378; G0480